=== PATIENT | male | born 1980 | race Caucasian/White ===

== ENCOUNTER → 2018-01-02 | Outpatient (REF) | payer BC | LOC: M LAB REF 19:14 | DX: J02.9 Acute pharyngitis, unspecified (principal) | CPT/HCPCS: 87070 ==

== ENCOUNTER → 2019-08-16 | Outpatient (REF) | payer OTHER ==
[2019-08-16 12:15] LABS: ALBUMIN 4.5 GM/DL (3.2-5.2); ALT/SGPT 69 U/L (12-78); AMYLASE 53 U/L (25-115); BILIRUBIN,TOTAL 0.7 MG/DL (0.2-1.0); BLOOD UREA NITROGEN 15 MG/DL (7-18); CALCIUM LEVEL 9.1 MG/DL (8.5-10.1); CARBON DIOXIDE LEVEL 29 MEQ/L (21-32); CHLORIDE LEVEL 106 MEQ/L (98-107); CHOLESTEROL LEVEL 184 MG/DL (<200); CHOLESTEROL RISK RATIO 6.571 (<5); CREATININE FOR GFR 1.03 MG/DL (0.70-1.30); FREE T4 0.84 NG/DL (0.76-1.46); GLOMERULAR FILTRATION RATE > 60.0 (>60); GLUCOSE, FASTING 96 MG/DL (70-100); HDL CHOLESTEROL 28 MG/DL (>40); LDL CHOLESTEROL 99 MG/DL (<100); LIPASE 147 U/L (73-393); NON-HDL-C 156 MG/DL; SODIUM LEVEL 141 MEQ/L (136-145); TRIGLYCERIDES LEVEL 287 MG/DL (<150)
[2019-08-16 12:17] LABS: BASO % 0.6 % (0.0-1.0); EOS # 0.3 10^3/uL (0.0-0.5); EOS % 4.1 % (0.0-3.0); HEMATOCRIT 47.2 % (42.0-52.0); HEMOGLOBIN 16.9 g/dl (13.5-17.5); LYMPH # 1.6 10^3/uL (1.5-5.0); LYMPH % 24.6 % (24.0-44.0); MEAN CORPUSCULAR HEMOGLOBIN 31.6 pg (27.0-33.0); MEAN CORPUSCULAR HGB CONC 35.8 g/dl (32.0-36.5); MEAN CORPUSCULAR VOLUME 88.4 fl (80.0-96.0); MONO # 0.6 10^3/uL (0.0-0.8); MONO % 8.6 % (0.0-5.0); NEUTROPHILS # 4.1 10^3/uL (1.5-8.5); NEUTROPHILS % 61.9 % (36.0-66.0); PLATELET COUNT, AUTOMATED 185 10^3/uL (150-450); RED BLOOD COUNT 5.34 10^6/uL (4.30-6.10); WHITE BLOOD COUNT 6.6 10^3/uL (4.0-10.0)
[2019-08-16 12:35] LABS: HEMOGLOBIN A1c 5.4 %
[2019-08-16 16:07] LABS: TOTAL 25(OH) VITAMIN D 24.7 NG/ML (30.0-100.0)
[2019-08-16 16:08] LABS: H PYLORI QUALITATIVE IgG NEGATIVE (NEGATIVE)
== END ==
LOC: M LAB REF 10:54
PROVIDERS: ATTEND Physician Assistant
DX: Z68.31 Body mass index [BMI] 31.0-31.9, adult (principal); E66.09 Other obesity due to excess calories; Z13.1 Encounter for screening for diabetes mellitus; Z13.220 Encounter for screening for lipoid disorders; R22.32 Localized swelling, mass and lump, left upper limb; R10.13 Epigastric pain; R10.817 Generalized abdominal tenderness; L71.9 Rosacea, unspecified

== ENCOUNTER → 2019-09-10 | Outpatient (CLI) | payer MEDICAID, OTHER ==
--- NOTE | 2019-09-10 08:23 | REP ---
COMPLETE ABDOMINAL SONOGRAPHY: HISTORY: Epigastric pain. Generalized abdominal tenderness. FINDINGS: Scanning through the right upper quadrant of the abdomen demonstrates normal sized thin-walled gallbladder without evidence of stone. There is evidence of a 0.4 cm polyp along the non-dependent wall of the gallbladder. No other evidence of wall thickening or pericholecystic fluid. Common bile duct is normal measuring 0.5 cm in greatest diameter. Normal size homogeneous liver is seen. No focal liver lesion. The spleen is at the upper range of normal in size, 13.1 cm in greatest diameter but homogeneous. A normal caliber aorta is seen, 2.3 cm in greatest AP dimension. There is no evidence of ascites. Renal cortical echogenicity pattern is normal and contours are smooth bilaterally. There is no evidence of hydronephrosis, cyst, or mass in either kidney. The right kidney measures 11.7 x 5.3 x 4.8 cm. Left renal dimensions are 11.9 x 5.0 x 4.6 cm. IMPRESSION: 4 mm polyp in the gallbladder wall. Otherwise normal acute abdominal sonography. Electronically Signed by Cosme Dickerson MD 09/10/2019 02:20 P
== END ==
LOC: M RAD 07:04
PROVIDERS: ATTEND Physician Assistant
DX: R10.13 Epigastric pain (principal)

== ENCOUNTER → 2019-12-04 | Outpatient (CLI) | payer OTHER | LOC: M LABSMTC 12:16 | PROVIDERS: ATTEND Anesthesiology | DX: Z01.818 Encounter for other preprocedural examination (principal); Z11.59 Encounter for screening for other viral diseases ==

== ENCOUNTER 2019-12-06 10:42 | Day surgery (SDC) | payer OTHER ==
[~2019-12-06] VITALS: Ht 185.4 cm; Wt 100.2 kg
[~2019-12-06 10:42] MED LIST: NS 1,000 ML IV ONE
[2019-12-06] MEDS ORDERED: LIDOCAINE 2% 100MG/5ML SDV (FOR ANES.) As Ordered ONE (12:05)
[2019-12-06] MEDS ORDERED: fentaNYL 100 MCG/2 ML INJECTION (J3010) As Ordered ONE (12:05)
[2019-12-06] MEDS ORDERED: propofoL 200 MG/20 ML VIAL As Ordered ONE ×2 (12:05→12:14)
--- NOTE | 2019-12-06 12:11 | ROOR ---
Patient Name: Sammy Peck Procedure Date: 12/06/2019 11:57 AM Date of : 1980 Age: 39 Room: [facility] Gender: Male Note Status: Finalized Procedure: Upper GI endoscopy Indications: Generalized abdominal pain, Eructation Providers: Lio CULLEN MD Referring MD: Yariel Harry PA Requesting Provider: Medicines: Monitored Anesthesia Care Complications: No immediate complications. Procedure: Pre-Anesthesia Assessment: - The heart rate, respiratory rate, oxygen saturations, blood pressure, adequacy of pulmonary ventilation, and response to care were monitored throughout the procedure. The Endoscope was introduced through the mouth, and advanced to the second part of duodenum. The upper GI endoscopy was accomplished without difficulty. The patient tolerated the procedure well. Findings: The esophagus was normal. The stomach was normal. The examined duodenum was normal. Biopsies for histology were taken with a cold forceps in the second portion of the duodenum and in the third portion of the duodenum for evaluation of celiac disease. Biopsies were taken with a cold forceps in the gastric antrum for Helicobacter pylori testing. Impression: - Normal esophagus. - Normal stomach. - Normal examined duodenum. - Biopsies were taken with a cold forceps for evaluation of celiac disease. - Biopsies were taken with a cold forceps for Helicobacter pylori testing. Recommendation: - Observe patient's clinical course. - Follow an antireflux regimen. - Telephone endoscopist for pathology results in 2 weeks. - Return to referring physician as previously scheduled. Lio Cullen MD Lio CULLEN MD 12/06/2019 12:11:38 PM Electronically signed by Lio CULLEN MD Number of Addenda: 0 Note Initiated On: 12/06/2019 11:57 AM Estimated Blood Loss: Estimated blood loss: none.
[2019-12-06] MEDS ORDERED: ePHEDrine SULFATE 25 MG/5 ML(5MG/ML) SYRINGE As Ordered ONE (12:15)
--- NOTE | 2019-12-06 12:29 | ROOR ---
Patient Name: Sammy Peck Procedure Date: 12/06/2019 11:57 AM Date of : 1980 Age: 39 Room: [facility] Gender: Male Note Status: Finalized Procedure: Colonoscopy Indications: Change in bowel habits, Constipation, Diarrhea Providers: Lio CULLEN MD Referring MD: Yariel Harry PA Requesting Provider: Medicines: Monitored Anesthesia Care Complications: No immediate complications. Procedure: Pre-Anesthesia Assessment: - The heart rate, respiratory rate, oxygen saturations, blood pressure, adequacy of pulmonary ventilation, and response to care were monitored throughout the procedure. The Colonoscope was introduced through the anus and advanced to 10 cm into the ileum. The colonoscopy was performed without difficulty. The patient tolerated the procedure well. The quality of the bowel preparation was good. Findings: The perianal and digital rectal examinations were normal. Internal hemorrhoids were found during retroflexion. The hemorrhoids were medium-sized. Two sessile polyps were found in the sigmoid colon and cecum. The polyps were 5 to 8 mm in size. These polyps were removed with a cold snare. Resection and retrieval were complete. The exam was otherwise without abnormality on direct and retroflexion views. The terminal ileum appeared normal. Biopsies for histology were taken with a cold forceps from the entire colon for evaluation of microscopic colitis. Impression: - The perianal exam and examined portion of the ileum was normal. - Internal hemorrhoids. - Two 5 to 8 mm polyps in the sigmoid colon and in the cecum, removed with a cold snare. Resected and retrieved. - The examination was otherwise normal on direct and retroflexion views. - Biopsies for histology were taken with a cold forceps from the entire colon for evaluation of microscopic colitis. Recommendation: - Telephone endoscopist for pathology results in 2 weeks. - If the pathology report reveals adenomatous tissue, then repeat the colonoscopy for surveillance in 5 years. - Lactose free diet. - Continue present medications. - Return to referring physician as previously scheduled. Lio Cullen MD Lio CULLEN MD 12/06/2019 12:29:17 PM Electronically signed by Lio CULLEN MD Number of Addenda: 0 Note Initiated On: 12/06/2019 11:57 AM Estimated Blood Loss: Estimated blood loss: none.
[2019-12-06 12:45] VITALS: BP 134/78
== END 2019-12-06 13:30 | disposition home or self-care (01) ==
LOC: M OPP 10:42
PROVIDERS: ATTEND Internal Medicine Gastroenterology
DX: K63.5 Polyp of colon (principal); K64.8 Other hemorrhoids; K59.00 Constipation, unspecified; R19.7 Diarrhea, unspecified; R10.84 Generalized abdominal pain; R14.2 Eructation; K29.70 Gastritis, unspecified, without bleeding
CPT/HCPCS: 43239; 45380; 45385; 88305; J3010

== ENCOUNTER 2020-08-23 15:57 | Emergency (ER) | payer OTHER ==
[~2020-08-23] VITALS: Ht 182.9 cm; Wt 105.9 kg
--- OUTSIDE RECORDS SUMMARY | 2020-08-23 16:05 | CCD ---
Author Organization Unknown Address [address] [place] [id number] Phone [phone] Care Team Providers Care Gear Shaper Name Role Phone Yariel Perez Unavailable Unavailable Allergies Code Code System Name Reaction Severity Status Onset NKDA Medications No Medications Reported Problems Name Status Onset Date Source Simple Obesity Active 08/05/2019 History Body Mass Index 25-29 - Overweight Active 08/05/2019 History Rosacea Active 08/05/2019 History Epigastric Pain Unknown 08/05/2019 History Generalized Abdominal Tenderness Unknown 08/05/2019 History Diabetes Mellitus Screening Unknown 08/05/2019 Hist ory Finding of Upper Limb Unknown 08/05/2019 History Evaluation Procedure Unknown 08/05/2019 History Clinical Finding Unknown 08/05/2019 History Pure Hyperglyceridemia Active 08/23/[address] Concept Unknown 08/23/2019 History Patient Asked to Attend Unknown 08/23/2019 History Cholesterolosis of Gallbladder Active 10/07/2019 H istory Adjustment Disorder with Anxious Mood Active 01/15/2020 History Palpitations Active 01/15/2020 History Chest Pain Unknown 01/15/2020 History Procedures Notes: tissue removal from left chest ar ea age 17 Results Lab Results Date Name Specimen Result Interpretation Description Value Range Status Address Urinalysis, Dipstick, Auto Bilirubin neg [facility] Medical: [address], [place] Blood neg [facility] Medic al: [address], [place] Glucose neg [facility] Med ical: [address] [place] Ketone neg [facility] Medi lance: [address] [place] Leukocytes neg [facility] Medical: [address] [place] Nitrite neg [facility] Med ical: [address] [place] Ph 6.0 [facility] Medica l: [address] [place] Protein neg [facility] Med ical: [address] [place] Specific [place] 1.010 [facility]: [address] [place] Urobilinogen 3.5 [facility] Medical: [address] [facility] [address] [place] Past Encounters 08/13/2020 Dysuria; Low Back Pain; Mental Health Screening Assessment Lilli Alarcon PA-C: [address] [facility], [facility] [address], [place] [address], Ph. Social History Tobacco Smoking Status Never Smoker Vaccine List None recorded. Plan of Care Reminders Provider Appointments None recorded. Lab None recorded. Referral None recorded. Procedures None recorded. Surgeries None recorded. Imaging None recorded. Vitals 08/13/2020 02:30PM ESTABLISHED [id number] Height Weight BMI Blood Pressure 72 in 233 lbs 12.8 oz 31.7 kg/m2 121/79 mm[H g] 01/15/2020 Height Weight Blood Pressure 72 in 219 lbs 6.08 oz 106/74 mm[Hg] 10/07/2019 Height Weight Blood Pressure 72 in 216 lbs 115/75 mm[Hg] 08/23/2019 Height Weight Blood Pressure 72 in 221 lbs 127/89 mm[Hg] 08/05/2019 Height Weight Blood Pressure 72 in 229 lbs 6.08 oz 138/89 mm[Hg]
--- OUTSIDE RECORDS SUMMARY | 2020-08-23 16:05 | CCD ---
Author Author [facility] Organization [facility] Address Unknown Phone Unavailable Care Team Providers Care Campaign Fundraiser Name Role Phone Nic, A Gisela OUTDOOR EMERGENCY CARE TECHNICIAN Unavailable Unavailable Nic, A Gisela OUTDOOR EMERGENCY CARE TECHNICIAN Unavailable Unavailable Nic, A Gisela OUTDOOR EMERGENCY CARE TECHNICIAN Unavailable Unavailable Nic, A Gisela OUTDOOR EMERGENCY CARE TECHNICIAN Unavailable Unavailable Nic, A Gisela OUTDOOR EMERGENCY CARE TECHNICIAN Unavailable Unavailable Nic, A Gisela OUTDOOR EMERGENCY CARE TECHNICIAN Unavailable Unavailable Nic, A Gisela OUTDOOR EMERGENCY CARE TECHNICIAN Unavailable Unavailable Nic, A Gisela OUTDOOR EMERGENCY CARE TECHNICIAN Unavailable Unavailable Nic, A Gisela OUTDOOR EMERGENCY CARE TECHNICIAN Unavailable Unavailable Nic, A Gisela OUTDOOR EMERGENCY CARE TECHNICIAN Unavailable Unavailable Nic, A Gisela OUTDOOR EMERGENCY CARE TECHNICIAN Unavailable Unavailable Nic, A Gisela OUTDOOR EMERGENCY CARE TECHNICIAN Unavailable Unavailable Nic, A Gisela OUTDOOR EMERGENCY CARE TECHNICIAN Unavailable Unavailable Nic, A Gisela OUTDOOR EMERGENCY CARE TECHNICIAN Unavailable Unavailable Nic, A Gisela OUTDOOR EMERGENCY CARE TECHNICIAN Unavailable Unavailable Nic, A Gisela OUTDOOR EMERGENCY CARE TECHNICIAN Unavailable Unavailable Nic, A Gisela OUTDOOR EMERGENCY CARE TECHNICIAN Unavailable Unavailable Nic, A Gisela OUTDOOR EMERGENCY CARE TECHNICIAN Unavailable Unavailable Nic, A Gisela OUTDOOR EMERGENCY CARE TECHNICIAN Unavailable Unavailable Nic, A Gisela OUTDOOR EMERGENCY CARE TECHNICIAN Unavailable Unavailable Nic, A Gisela OUTDOOR EMERGENCY CARE TECHNICIAN Unavailable Unavailable Nic A Gisela OUTDOOR EMERGENCY CARE TECHNICIAN Unavailable Unavailable Nic, A Gisela OUTDOOR EMERGENCY CARE TECHNICIAN Unavailable Unavailable Nic, A Gisela OUTDOOR EMERGENCY CARE TECHNICIAN Unavailable Unavailable Nic, A Gisela OUTDOOR EMERGENCY CARE TECHNICIAN Unavailable Unavailable Nic, A Gisela OUTDOOR EMERGENCY CARE TECHNICIAN Unavailable Unavailable Nic, A Gisela OUTDOOR EMERGENCY CARE TECHNICIAN Unavailable Unavailable Scordo, M Lilli PA Unavailable Unavailable Scordo, M Lilli PA Unavailable Unavailable Scordo, M Lilli PA Unavailable Unavailable Scordo, M Lilli PA Unavailable Unavailable Scordo, M Lilli PA Unavailable Unavailable Scordo, M Lilli PA Unavailable Unavailable Scordo, M Lilli PA Unavailable Unavailable Scordo, M Lilli PA Unavailable Unavailable Scordo, M Lilli PA Unavailable Unavailable Scordo, M Lilli PA Unavailable Unavailable Scordo, M Lilli PA Unavailable Unavailable Scordo, M Lilli PA Unavailable Unavailable Scordo, M Lilli PA Unavailable Unavailable Scordo, M Lilli PA Unavailable Unavailable Scordo, M Lilli PA Unavailable Unavailable Scordo, M Lilli PA Unavailable Unavailable Scordo, M Lilli PA Unavailable Unavailable Scordo, M Lilli PA Unavailable Unavailable Scordo, M Lilli PA Unavailable Unavailable Scordo, M Lilli PA Unavailable Unavailable Scordo, M Lilli PA Unavailable Unavailable Scordo, M Lilli PA Unavailable Unavailable Scordo, M Lilli PA Unavailable Unavailable Scordo, M Lilli PA Unavailable Unavailable Scordo, M Lilli PA Unavailable Unavailable Scordo, M Lilli PA Unavailable Unavailable Scordo, M Lilli PA Unavailable Unavailable Scordo, M Lilli PA Unavailable Unavailable Scordo, M Lilli PA Unavailable Unavailable Scordo, M Lilli PA Unavailable Unavailable Scordo, M Lilli PA Unavailable Unavailable Scordo, M Lilli PA Unavailable Unavailable Scordo, M Lilli PA Unavailable Unavailable Scordo, M Lilli PA Unavailable Unavailable Scordo, M Lilli PA Unavailable Unavailable Scordo, M Lilli PA Unavailable Unavailable Scordo, M Lilli PA Unavailable Unavailable Scordo, M Lilli PA Unavailable Unavailable Scordo, M Lilli PA Unavailable Unavailable Scordo, M Lilli PA Unavailable Unavailable Nic, Gisela OUTDOOR EMERGENCY CARE TECHNICIAN OUTDOOR EMERGENCY CARE TECHNICIAN Unavailable Unavailable HERNANDEZ, GABRIEL YARIEL RPA-C Unavailable Unavailable HERNANDEZ, GABRIEL YARIEL RPA-C Unavailable Unavailable HERNANDEZ, GABRIEL YARIEL RPA-C Unavailable Unavailable HERNANDEZ, GABRIEL YARIEL RPA-C Unavailable Unavailable HERNANDEZ, GABRIEL YARIEL RPA-C Unavailable Unavailable HERNANDEZ, GABRIEL YARIEL RPA-C Unavailable Unavailable HERNANDEZ, GABRIEL YARIEL RPA-C Unavailable Unavailable HERNANDEZ, GABRIEL YARIEL RPA-C Unavailable Unavailable HERNANDEZ, GABRIEL YARIEL RPA-C Unavailable Unavailable HERNANDEZ, GABRIEL YARIEL RPA-C Unavailable Unavailable HERNANDEZ, GABRIEL YARIEL RPA-C Unavailable Unavailable HERNANDEZ, GABRIEL YARIEL RPA-C Unavailable Unavailable HERNANDEZ, GABRIEL YARIEL RPA-C Unavailable Unavailable HRENANDEZ, GABRIEL YARIEL RPA-C Unavailable Unavailable HERNANDEZ, GABRIEL YARIEL RPA-C Unavailable Unavailable HERNANDEZ, GABRIEL YARIEL RPA-C Unavailable Unavailable HERNANDEZ, GABRIEL YARIEL RPA-C Unavailable Unavailable HERNANDEZ, GABRIEL YARIEL RPA-C Unavailable Unavailable HERNANDEZ, GABRIEL YARIEL RPA-C Unavailable Unavailable HERNANDEZ, GABRIEL YARIEL RPA-C Unavailable Unavailable HERNANDEZ, GABRIEL YARIEL RPA-C Unavailable Unavailable HERNANDEZ, GABRIEL YARIEL RPA-C Unavailable Unavailable HERNANDEZ, GABRIEL YARIEL RPA-C Unavailable Unavailable HERNANDEZ, GABRIEL YARIEL RPA-C Unavailable Unavailable HERNANDEZ, GABRIEL YARIEL RPA-C Unavailable Unavailable HERNANDEZ, GABRIEL YARIEL RPA-C Unavailable Unavailable HERNANDEZ, GABRIEL YARIEL RPA-C Unavailable Unavailable HERNANDEZ, GABRIEL YARIEL RPA-C Unavailable Unavailable HERNANDEZ, GABRIEL YARIEL RPA-C Unavailable Unavailable HERNANDEZ, GABRIEL YARIEL RPA-C Unavailable Unavailable HERNANDEZ, GABRIEL YARIEL RPA-C Unavailable Unavailable HERNANDEZ, GABRIEL YARIEL RPA-C Unavailable Unavailable HERNANDEZ, GABRIEL YARIEL RPA-C Unavailable Unavailable HERNANDEZ, GABRIEL YARIEL RPA-C Unavailable Unavailable HERNANDEZ, GABRIEL YARIEL RPA-C Unavailable Unavailable HERNANDEZ, GABRIEL YARIEL RPA-C Unavailable Unavailable HERNANDEZ, GABRIEL YARIEL RPA-C Unavailable Unavailable HERNANDEZ, GABRIEL YARIEL RPA-C Unavailable Unavailable HERNANDEZ, GABRIEL YARIEL RPA-C Unavailable Unavailable [facility], [facility] HERNANDEZ PA YARIEL Unavailable Unavailable Re-disclosure Warning The records that you are about to access may contain information from federally-assisted alcohol or drug abuse programs. If such information is present, then the following federally mandated warning applies: This information has been disclosed to you from records protected by federal confidentiality rules (42 CFR part 2). The federal rules prohibit you from making any further disclosure of this information unless further disclosure is expressly permitted by the written consent of the person to whom it pertains or as otherwise permitted by 42 CFR part 2. A general authorization for the release of medical or other information is NOT sufficient for this purpose. The Federal rules restrict any use of the information to criminally investigate or prosecute any alcohol or drug abuse patient.The records that you are about to access may contain highly sensitive health information, the redisclosure of which is protected by Article 27-F of the [facility] Public Health law. If you continue you may have access to information: Regarding HIV / AIDS; Provided by facilities licensed or operated by the [facility] Office of Mental Health; or Provided by the [facility] Office for People With Developmental Disabilities. If such information is present, then the following [facility] mandated warning applies: This information has been disclosed to you from confidential records which are protected by state law. State law prohibits you from making any further disclosure of this information without the specific written consent of the person to whom it pertains, or as otherwise permitted by law. Any unauthorized further disclosure in violation of state law may result in a fine or alf sentence or both. A general authorization for the release of medical or other information is NOT sufficient authorization for further disc losure. Family History Family Member Name Family Member Gender Family Member Status Date o f Status Description Data Source(s) Unknown Unknown Problem [facility] ([facility] father Encounters Encounter Providers Location Date Indications Data Source(s ) Lilli Alarcon PA-C: [address] [facility] [address], [place] [address], Ph. Attender: Lilli PENA [facility] 08/13/2020 12:00:00 AM EST MARK ([facility]) Outpatient Attender: YARIEL MILLS 07/06/2020 12:02:[address] [facility] Outpatient Attender: MARILYN SALINAS 02/12/2020 08:51:[address] [facility] Outpatient Attender: MARILYN GARCIA NC FP 01/28/2020 12:03:02 PM EDT [facility] Outpatient Attender: MARILYN GARCIA NC FP 01/22/2020 09:04:02 AM EDT [facility] Outpatient Attender: MARILYN GARCIA NC FP 01/17/2020 03:07:[address] [facility] Outpatient Attender: YARIEL MARY RPA-C FP 01/16/2020 01:25:00 PM EDT [facility] Outpatient Attender: Gisela OLSON FP 01/16/2020 10:3 0:07 AM EDT [facility] Outpatient Attender: WESLEY OLSON FP 01/15/2020 04:55:59 P M EDT [facility] Outpatient Attender: WESLEY OLSON FP 01/15/2020 04:49:01 P M EDT [facility] Outpatient Attender: WESLEY OLSON FP 01/15/2020 03:59:00 P M EDT [facility] Outpatient Attender: WESLEY OLSON FP 10/14/2019 04:49:01 P M EDT [facility] Outpatient Attender: Gisela OLSON FP 10/14/2019 09:1 8:01 AM EDT [facility] Outpatient Attender: WESLEY OLSON FP 10/07/2019 09:00:04 A [facility] Outpatient Attender: WESLEY OLSON FP 10/07/2019 08:35:01 A M [facility] Outpatient Attender: WESLEY OLSON FP 10/03/2019 12:46:02 P M [facility] Out[facility] 09/18/2019 02:13:00 PM [facility] Outpatient Attender: WESLEY OLSON FP 09/12/2019 10:14:04 A M [facility] Outpatient Attender: WESLEY OLSON FP 09/04/2019 01:55:01 P M [facility] Outpatient Attender: Gisela OLSON FP 08/26/2019 08:0 9:01 AM [facility] Outpatient Attender: WESLEY OLSON FP 08/23/2019 09:02:01 A [facility] Outpatient Attender: WESLEY Lucero OUTDOOR EMERGENCY CARE TECHNICIAN FP 08/23/2019 08:08:00 A [facility] Outpatient Attender: WESLEY Lucero OUTDOOR EMERGENCY CARE TECHNICIAN FP 08/22/2019 01:36:02 P [facility] Outpatient Attender: Gisela Lucero OUTDOOR EMERGENCY CARE TECHNICIAN FP 08/22/2019 01:3 6:01 PM [facility] Outpatient Attender: Gisela Lucero OUTDOOR EMERGENCY CARE TECHNICIAN FP 08/22/2019 01:3 0:05 PM [facility] Outpatient Attender: WESLEY Lucero OUTDOOR EMERGENCY CARE TECHNICIAN FP 08/16/2019 10:17:00 A [facility] Outpatient Attender: WESLEY Lucero OUTDOOR EMERGENCY CARE TECHNICIAN FP 08/16/2019 08:41:01 A M [facility] Outpatient Attender: Gisela Lucero OUTDOOR EMERGENCY CARE TECHNICIAN 08/05/2019 02:3 0:04 PM [facility] Outpatient Attender: WESLEY Lucero OUTDOOR EMERGENCY CARE TECHNICIAN 08/05/2019 02:28:03 P [facility] Outpatient Attender: Gisela Lucero OUTDOOR EMERGENCY CARE TECHNICIAN 08/05/2019 02:2 8:03 PM [facility] Outpatient Attender: WESLEY Lucero OUTDOOR EMERGENCY CARE TECHNICIAN 08/05/2019 01:11:00 P [facility] Outpatient Attender: WESLEY Lucero OUTDOOR EMERGENCY CARE TECHNICIAN 08/05/2019 01:10:01 P [facility] Outpatient Attender: WESLEY Lucero OUTDOOR EMERGENCY CARE TECHNICIAN 08/05/2019 01:01:00 P [facility] Outpatient Attender: WESLEY Lucero OUTDOOR EMERGENCY CARE TECHNICIAN FP 08/05/2019 12:59:00 P [facility] Outpatient Attender: WESLEY Lucero OUTDOOR EMERGENCY CARE TECHNICIAN FP 08/05/2019 12:48:00 P [facility] Outpatient Attender: WESLEY Lucero OUTDOOR EMERGENCY CARE TECHNICIAN FP 08/05/2019 12:45:00 P [facility] Outpatient Attender: WESLEY Lucero OUTDOOR EMERGENCY CARE TECHNICIAN FP 08/01/2019 09:59:00 A M [facility] Outpatient Attender: Gisela Lucero OUTDOOR EMERGENCY CARE TECHNICIAN FP 08/01/2019 09:5 8:01 AM [facility] Outpatient Attender: WESLEY Lucero OUTDOOR EMERGENCY CARE TECHNICIAN FP 08/01/2019 09:58:01 A M [facility] Medications Medication Brand Name Start Date Product Form Dose Route Admi nistrative Instructions Pharmacy Instructions Status Indications Reaction Description Data Source(s) magnesium citrate 58.2 MG/ML Oral Solution Magnesium Citrate 10/03/2019 12:00:00 AM EST active [facility] ([facility], ) POLYETHYLENE GLYCOL 3350 105 MG/ML / Pot assium Chloride 0.06772 MEQ/ML / Sodium Bicarbonate 0.017 MEQ/ML / Sodium Chloride 0.0479 MEQ/ML Oral Solution [TriLyte] Trilyte 10/03/2019 12:00:00 AM EST active [facility] ([facility]) No Active Medications 10/03/2019 12:00:00 AM EST completed [facility] ([facility]) POLYETHYLENE GLYCOL 3350 142 MG/ML Oral Solution [Miralax] M iralax 10/03/2019 12:00:00 AM EST active M [facility] ([facility]) Insurance Providers Payer name Policy type / Coverage type Policy ID Covered republican ID Covered republican's relationship to sharp Policy Sharp Plan Information ANKIT [id number] SP [id number] Managed Care [place] P [id number] S [id number] Medicaid S [id number] S [id number] MEDICAID [id number] SP [id number] Managed Care [place] P [id number] S [id number] Medicaid S UNAVAILABLE S UNAVAILA BLE [facility] P [id number] S [id number] [facility] P [id number] S [id number] MEDICAID M [id number] S [id number] MEDICAID [id number] SP [id number] [facility] P [id number] S [id number] Self Pay P UNAVAILABLE S UNAVAILA BLE [place] PPO 302/[id number] SP [id number] BCBS/[employer] Commercial [id number] Self VY [id number] BLUE CROSS BLUE SHIELD -O/P [id number] Problems, Conditions, and Diagnoses Code Display Name Description Problem Type Effective Dates Data Source(s) 309.24 Adjustment disorder with anxious mood Ad justment disorder with anxious mood 01/15/2020 04:55:[address] [facility] 786.59 Tight chest Tight chest 01/15/2020 04:55:[address] [facility] 785.1 Intermittent palpitations Intermittent palpitations 01/15/2020 04:55:[address] [facility] [id number] Chest pain Chest Pain Problem 01/15/2020 12:0 0:00 AM EDT - 08/14/2020 12:00:00 AM EST [place] ([facility]) [id number] Palpitations Palpitations Problem 01/15/2020 12:00:00 A M EDT [place] ([facility]) [id number] Adjustment disorder with anxious mood Ad justment Disorder with Anxious Mood Problem 01/15/2020 12:00:00 AM EDT [facility]) K82.4 Cholesterolosis of gallbladder Polyp of gallbladder 10/07/2019 08:58:35 AM [facility] V85.25 Body Mass Index 29.0-29.9, adult Body Mass Index 29.0- 29.9, adult 10/07/2019 08:58:35 AM [facility] [id number] Cholesterolosis of gallbladder Cholesterolosis of Gall bladder Problem 10/07/2019 12:00:00 AM [facility] ([facility]) 272.1 Hypertriglyceridemia Hypertriglyceridemia 08/23 09:01:56 AM [facility] V65.8 Person consulting for explanation of exa mination or test findings Person consulting for explanation of examination or test findings 08/23/2019 09:01:56 AM [facility] Z00.00 Encounter for general adult medical examination without abnormal findings Encounter for general adult medical examination without abno rmal findings 08/23/2019 09:01:56 AM [facility] [id number] Patient asked to attend Patient Asked to Attend [facility] 08/23/2019 12:00:00 AM [facility] - 08/14/2020 [facility]00[id number] SN[facility] Concept SNOMED CT Concept Problem 08/23 12:00:00 AM EST - 08/14/2020 12:00:00 AM EST MARK ([facility]) [id number] Pure hyperglyceridemia Pure Hyperglyceridemia Problem 08/23/2019 12:00:00 AM [place] ([facility]) V70.0 Health Screening Health Screening 08/05/2019 02 :27:06 PM [facility] 278.00 Obesity Obesity 08/05/2019 02:27:[address] [facility] V77.1 Screening for diabetes mellitus Screening for diabetes mellitus 08/05/2019 02:27:06 PM [facility] V77.91 Screening for lipoid disorders Screening for lipoid di sorders 08/05/2019 02:27:06 PM [facility] R22.32 Localized swelling, mass and lump, left upper limb Nodule of skin of left forearm 08/05/2019 02:27:06 PM [facility] 789.06 Epigastric pain Epigastric pain 08/05/2019 02:2 7:06 PM [facility] [id number] Generalized abdominal tenderness Generalized abdominal tenderness 08/05/2019 02:27:06 PM [facility] L71.9 Rosacea, unspecified Rosacea, unspecified 08/05 02:27:06 PM [facility] 337187006 Clinical finding Clinical Finding Problem 019 12:00:00 AM [facility] - 08/14/2020 12:00:00 AM [place] ([facility]) [id number] Evaluation procedure Evaluation Procedure Problem 08/05/2019 12:00:00 AM [facility] - 08/14/2020 12:00:00 AM [place] ([facility]) [id number] Finding of upper limb Finding of Upper Limb Problem 08/05/2019 12:00:00 AM [facility] - 08/14/2020 12:00:00 AM [place] ([facility]) 217803065 Diabetes mellitus screening Diabetes Mellitus Screenin g Problem 08/05/2019 12:00:00 AM [facility] - 08/14/2020 12:00:00 AM [place] ([facility]) [id number] Generalized abdominal tenderness Generalized Abd ominal Tenderness Problem 08/05/2019 12:00:00 AM [facility] - 08/14/2020 12:00:00 AM [place] ([facility]) 01547514 Epigastric pain Epigastric Pain Problem 9 12:00:00 AM EST - 08/14/2020 12:00:00 AM [place] [place] ([facility]) 892854107 Rosacea Rosacea Problem 08/05/2019 12:00:00 AM [place] ([facility]) 735252216 Body mass index 25-29 - overweight Body Mass Ind ex 25-29 - Overweight Problem 08/05/2019 12:00:00 AM [facility] [place] ([facility]) 900265823 Simple obesity Simple Obesity Problem 08/05/2019 12:00: 00 AM [place] [place] ([facility]) Results ID Date Data Source [id number] 01/15/2020 04:04:[address] [facility] Measurements & CalculationsHeight: 72 inches (6 ft. 0 in.) 182.88 cm Weight: 219 pounds 6 oz. 99.72 kg Body Mass Index (BMI): 29.86BMI Interpretation: OverweightBody Surface Area (BSA): 2.22Vital SignsTemperature: 98.4F 36.89C tympanic Pulse Rate: 84 beats/minuteRespiratory Rate: 19 respirations/minuteBlood Pressure: 106/74 left arm sitting automaticO2 Saturation: 97% Vital Signs performed by: Eleanor Sharpe LPN, January 15, 2020 4:06 PMInitial Intake Information From: patientRoom #: 1Infectious Disease / Travel ScreeningRecent travel for you or any close contacts? NoHave you had any close contact with anyone diagnosed with or under investigation for COVID-19 (coronavirus)? NoTravel in last 14 days? NoFever? NoRespiratory symptoms: cough, cold, congestion, shortness of breath, difficulty breathing? YesLoss of smell? NoLoss of taste? NoJoint pain? NoMuscle aches? NoGeneral fatigue, feeling tired, or weak? NoWeakness or numbness of your arms or legs, including being unable to walk/move? YesRash or hives? NoSmoking, Tobacco, Vaping or Smoke Exposure StatusSmoke Status: never smokerDo you vape? NoHealthcare HistorySince your last office visit...Have you been admitted to the hospital? NoHave you been to an emergency room (ER) or urgent care clinic? NoHave you seen another healthcare provider? NoHave you seen a dentist? Yes - brandi Taylor performed by: Eleanor Sharpe LPN, January 15, 2020 4:08 PMRate Your HealthIn general, would you say your health is? GoodPain AssessmentAre you currently having any pain which... You would like your provider to address? No Affects your activity level? NoDepression Screening - PHQ-2Over the last two weeks, have you... Had little interest or pleasure in doing things? Not at all Been feeling down, depressed, or hopeless? Not at all PHQ-2 Score: 0Anxiety Screening - JASPAL- 2Over the last two weeks, have you been... Feeling nervous, anxious, or on edge? Not at all Unable to stop or control worrying? Not at all JASPAL-2 Score: 0Food InsecurityWithin the past year...Did you worry whether your food would run out before you got money to buy more? NoWas there a time when the food you bought didn't last and you didn't have money to get more? NoPatient History Medical History:sickness induced asthma Surgical History:tissue removal from left chest area age 17Family History:Mother: alive and well1/2 sister from cancer in her 40s (unknown type, diagnosed with an ultrasound)Social/Personal History: Chief Complaintfollow-up visit: fluttering of heartHistory of Present Illness (HPI)39 yo patient states he has been having pain in center of chest along with fluttering heart. Pt states pressure when he takes a very deep breath. Does not note any exertion limitations, chest pain, dizziness. States does not affect his daily routine but is noticable. Pt states he has had a dry cough as well; feels it is different than his seasonal allergy cough. States this has been going on for 1 week. Had had an endoscopy/c-scope in December 2019, believes results were normal but he hasn't called for pathology results. Admits to intermittent fasting and strict dietary changes for the last two weeks, states he only eats between the hours of 830AM- 530PM. Pt does admit to significant stressors related to moving to [facility] for his 's preference. He feels he left a great job for himself, doesn't have great job options or chance for growth here, feels financial strains. Feels isolated socially in this location. At times feels blame towards his for pushing to move to this area from where they were previously in the [facility]. HPI performed by: Yariel ARGUELLO, January 15, 2020 4:37 PMTransitions of Care InboundProblem ReviewProblem List was reviewed and/or updated during this visit.Medication Reconciliation & ReviewMedication List was reviewed and/or updated during this visit, including review of any [id number] medications, herbal therapies, and/or supplements. Patient has no known medications.Allergy ReviewAllergy List was reviewed and/or updated during this visit. Patient has no known allergies.Review of Systems General: Denies chills, dizziness, fatigue, fever, headache, feeling ill. Cardiovascular: Complains of see HPI, chest pain, palpitations. Denies feeling faint, trouble breathing w/exertion, SOB upon lying down, peripheral edema. Respiratory: Denies cough, difficulty breathing, shortness of breath. Gastrointestinal: Denies nausea, vomiting, diarrhea, constipation, pain or discomfort. Ne urologic: Denies weakness, numbness/tingling, seizures, slurred speech, feeling faint. Psychiatric: Complains of see HPI, anxiety, feeling stressed. Physical ExamGeneral Appearance: well nourished, well hydrated, no acute distressEyes, External: conjunctivae and lids normal, EOMIRespiratory, Auscultation: clear to auscultation bilaterally; no rales, rhonchi, or wheezesRespiratory, Effort: no intercostal retractions or use of accessory musclesCardiovascular, Auscultation: S1, S2 audible; no murmur, rub, or gallop; RRRPeripheral Circulation: no clubbing, cyanosis, edema, or varicositiesAbdomen: soft, non-tender, no masses, bowel sounds normalGait & Station: normalSkin, Inspection: no rashes, lesions, or ulcerationsOrientation: oriented to time, place, and personMood & Affect: mildly anxious appearing, good eye contact, speech clearJudgment & Insight: intactCare Management Plan Transitions of CareInboundRate Your HealthIn general, would you say your health is? GoodAssessment & Plan Problems:Added: Intermittent palpitations (ICD-785.1) (XJI65-M35.2) Assessment: Instructions: EKG showed normal sinus rhythm. Will order Holter monitor to evaluate further.Tight chest (ICD-786.59) (JAR72-P75.89) Assessment: Instructions: Consider antihistamine to ensure allergies are being treated strictly. As above regarding EKG. Update labs.Adjustment disorder with anxious mood (ICD-309.24) (NHI97-U98.22) Assessment: Instructions: Consider above anxiety components as well.Assessed:Epigastric pain (ICD-789.06) (YYQ96-J67.13) Assessment: Instructions: Call your GI provider for pathology reports regarding Celiac and H pylori testing.Patient Instructions/Care Plan: Intermittent palpitations: EKG showed normal sinus rhythm. Will order Holter monitor to evaluate further.Tight chest: Consider antihistamine to ensure allergies are being treated strictly. As above regarding EKG. Update labs.Epigastric pain: Call your GI provider for pathology reports regarding Celiac and H pylori testing.Adjustment disorder with anxious mood: Consider above anxiety components as well. Plan developed in collaboration with patient and/or familyAllergies:No Known Allergies (updated 01/15/2020) Orders:COMP METABOLIC PANEL [CPT-58110] CBC W/DIFF [CPT-16517] TSH [CPT-11203] T-4 free [CPT-28962] Magnesium [S72343I,[id number]] 48HR Holter Monitor- external grocery cashier [CPT-22827] Mental Health Consult [CPT-10792] Adult - Ofc Vst, EST, Level III [CPT-75121] Follow-Up Return to clinic: as needed Clinical Visit Summary Declined Name Value Range Interpretation Code Description Data Casie rce(s) Supporting Document(s) ID Date Data Source [id number] 12/04/2019 12:00:00 PM EDT [facility] Name Value Range Interpretation Code Description Data Casie rce(s) Supporting Document(s) SARS CORONAVIRUS 2 RNA [facility] This lab was ordered by [facility] and reported by [facility]. ID Date Data Source [id number] 10/07/2019 08:33:53 AM [facility] Measurements & CalculationsHeight: 72 inches 182.88 cm Weight: 216 pounds 98.18 kg Body Mass Index (BMI): 29.40BMI Interpretation: OverweightBody Surface Area (BSA): 2.20Weight Management Education Done (Nutrition/Physical Activity)Vital SignsTemperature: 98.4F oral Pulse Rate: 55 beats/minuteRespiratory Rate: 19 respirations/minuteBlood Pressure: 115/75 left arm sitting automaticO2 Saturation: 97% room airVital Signs performed by: Aram Nogueira MA, October 07, 2019 8:42 AMVital Signs performed by: Yariel ARGUELLO, October 07, 2019 8:48 AMInitial Intake Information from: ptRoom #: 9Smoking, Tobacco, Vaping or Smoke Exposure StatusSmoke Status: never smokerDo you vape? NoPassive Smoke Exposure: NoHealthcare HistorySince your last office visit...Have you been admitted to the hospital? NoHave you been to an emergency room (ER) or urgent care clinic? NoHave you seen another healthcare provider? NoHave you seen a dentist? Yes - Brandi WardIntake performed by: Aram Nogueira MA, October 07, 2019 8:42 AMRate Your HealthIn general, would you say your health is? GoodPain AssessmentAre you currently having any pain which... You would like your provider to address? No Affects your activity level? NoDepression Screening - PHQ-2Over the last two weeks, have you... Had little interest or pleasure in doing things? Not at all Been feeling down, depressed, or hopeless? Not at all PHQ-2 Score: 0Anxiety Screening - JASPAL-2Over the last two weeks, have you been... Feeling nervous, anxious, or on edge? Not at all Unable to stop or control worrying? Not at all JASPAL-2 Score: 0Infectious Disease / Travel ScreeningRecent travel for you, your family, and/or any sexual partners? NoScreening, Brief Intervention, & Referral to Treatment (SBIRT)Pre-Screening Questions How many times have you have 5 or more drinks in a day? 0How many times have you used an illegal drug or used a prescription medication for a non-medical reason? 0Performed by: Aram Nogueira MA, October 07, 2019 8:43 AMPatient History Medical History:sickness induced asthma Surgical History:tissue removal from left chest area age 17Family History:Mother: alive and well1/2 sister from cancer in her 40s (unknown type, diagnosed with an ultrasound)Social/Personal History: Chief Complaintfollow up on ultra soundHistory of Present Illness (HPI)39 y/o male present today to go over abdominal ultrasound results. Pt reports he had initial GI consult last week, note not available in chart today. Reports colonscopy and EGD in the near future. Pt has still not taking PPI as previously prescribed. Pt feels symptoms remain fairly consistent, do worsen with unhealthy food choices. USN showed 0.4 cm polyp along the non-dependent wall of the gallbladder.HPI performed by: Yariel ARGUELLO, October 07, 2019 8:48 AMTransitions of Care InboundProblem ReviewProblem List was reviewed and/or updated during this visit.Medication Reconciliation & ReviewMedication List was reviewed and/or updated during this visit, including review of any buvv-ocm-iffopxk medications, herbal therapies, and/or supplements. Patient has no known medications.Allergy ReviewAllergy List was reviewed and/or updated during this visit. Patient has no known allergies.Adult Preventive CareLabs/Meds/Other Counseling-Nutrition and Physical Activity:BMI Interpretation: Overweight (10/07/2019) Counseling: Done (10/07/2019) Physical Activity: Done (10/07/2019)Review of Systems General: Denies chills, dizziness, fatigue, fever, headache, feeling ill. Gastrointestinal: Complains of nausea, pain or discomfort, heartburn. Denies vomiting, diarrhea, constipation, blood in stool, black or tarry stools. Neurologic: Denies weakness, feeling faint. Physical ExamGeneral Appearance: well nourished, well hydrated, no acute distressEyes, External: conjunctivae and lids normal, EOMIRespiratory, Auscultation: clear to auscultation bilaterally; no rales, rhonchi, or wheezesCardiovascular, Auscultation: S1, S2 audible; no murmur, rub, or gallop; RRRPeripheral Circulation: no clubbing, cyanosis, edema, or varicositiesAbdomen: soft, non- tender, no masses, bowel sounds normalGait & Station: normalOrientation: oriented to time, place, and personMood & Affect: mildly anxious appearing, good eye contact, speech clearJudgment & Insight: intactCare Management Plan Transitions of CareInboundRate Your HealthIn general, would you say your health is? GoodAssessment & Plan Problems:Added: Polyp of gallbladder (ICD-575.6) (VYR40-Z37.4) Assessment: Instructions: Will fax ultrasound report to your GI provider, polyp was 0.4mm in size. Continue per your GI specialist.Changed:From: Dx of BMI 31.0-31.9 (ICD-V85.31) (KOU48-K43.31) To: Body Mass Index 29.0-29.9, adult (ICD-V85.25) (CCG13-J36.29)Assessed:Obesity (ICD-278.00) (QFR50-C98.09) Assessment: Instructions: Recommend healthy lifestyle modification. Encourage portion control, healthy food choices, and increasing routine physical activity. Recommendation is for 150 minutes throughout the week of cardiovascular exercise.Body Mass Index 29.0-29.9, adult (ICD-V85.25) (SUR52-H90.29) Assessment: Instructions: Continue your healthy weight loss efforts as you are having success with this.Patient Instructions/Care Plan: Polyp of gallbladder: Will fax ultrasound report to your GI provider, polyp was 0.4mm in size. Continue per your GI specialist.Obesity: Recommend healthy lifestyle modification. Encourage portion control, healthy food choices, and increasing routine physical activity. Recommendation is for 150 minutes throughout the week of cardiovascular exercise.Body Mass Index 29.0-29.9- adult: Continue your healthy weight loss efforts as you are having success with this. Plan developed in collaboration with patient and/or familyAllergies:No Known Allergies (updated 10/07/2019) Orders:Adult - Ofc Vst, EST, Level III [CPT-99132] Follow-Up Return to clinic: Aug 2020, as needed for preventive care visitAdditional Follow-Up: annual PEClinical Visit Summary Completed] Name Value Range Interpretation Code Description Data Casie rce(s) Supporting Document(s) ID Date Data Source [id number] 08/23/2019 08:17:[address] [facility] Measurements & CalculationsHeight: 72 inches (6 ft. 0 in.) 182.88 cm Weight: 221.0 pounds 100.45 kg Body Mass Index (BMI): 30.08BMI Interpretation: ObeseBody Surface Area (BSA): 2.22Weight Management Education Done (Nutrition/Physical Activity)Vital SignsTemperature: 97.5F oral Pulse Rate: 71 beats/minuteRespirat ory Rate: 17 respirations/minuteBlood Pressure: 127/89 left arm sitting automaticO2 Saturation: 97% room airVital Signs performed by: Alona Pereyra LPN, August 23, 2019 8:28 AMVital Signs performed by: Yariel ARGUELLO, August 23, 2019 8:34 AMInitial Intake Information from: patientRoom #: 14Infectious Disease- Travel Have you or your sexual partner travelled outside of the country recently? NoSmoking, Tobacco or Smoke Exposure StatusSmoke Status: never smokerTobacco Use: NoPassive Smoke Exposure: NoHealthcare HistorySince your last office visit...Have you been admitted to the hospital? NoHave you been to an emergency room (ER) or urgent care clinic? NoHave you seen another healthcare provider? NoHave you seen a dentist? NoIntake performed by: Alona Pereyra LPN, August 23, 2019 8:19 AMRate Your HealthIn general, would you say your health is? FairPain AssessmentAre you currently having any pain which... You would like your provider to address? No Affects your activity level? NoDepression Screening - PHQ-2Over the last two weeks, have you... Had little interest or pleasure in doing things? Not at all Been feeling down, depressed, or hopeless? Not at all PHQ-2 Score: 0Anxiety Screening - JASPAL-2Over the last two weeks, have you been... Feeling nervous, anxious, or on edge? Not at all Unable to stop or control worrying? Not at all JASPAL-2 Score: 0PRAPARE Sociodemographic Characteristics Race: White Ethnicity: Not or Preferred Language: EnglishFamily and Home Address: [address] [place] [address] What is your housing situation today? I have housing Are you worried about losing your housing? NoMoney and Resources What is the highest level of school that you have finished? some college Employed? Yes Your current work situation? [employer] [facility]In the past year, have you or any family members you live with been unable to get any of the following when it was really needed? Denies Insecurity: food, utilities, clothing, child guidance counselor, phone, legal services, otherIn the past year, have you had trouble affording costs associated with health insurance (such as deductibles, co-payments, etc.)? NoSocial and Emotional Health How often do you see or talk to people that you care about and feel close to? More than 5 times a week How stressed are you? Quite a bitAdditional Optional Domains In the past 3 months, have you spent more than 2 nights in a row in a alf, shelter, retirement center or juvenile correctional facility? No Has lack of transportation kept you from medical appointments or from getting your medications? NoIn the past year, have you had trouble getting any of the following when it was really needed (check all that apply)?noneIn the past year, have you had trouble paying the costs associated with health care or medicine (such as co-payments, costs for services, prices of medicines)? NoHow confident are you that you can control and manage most of your health problems? Very confident Are you a refugee? No (Country of origin: [place]) Do you feel physically and emotionally safe where you live? Yes In the past year, have you been afraid of a partner, ex-partner? NoScreening, Brief Intervention, & Referral to Treatment (SBIRT)Pre-Screening Questions How many times have you have 5 or more drinks in a day? 0How many times have you used an illegal drug or used a prescription medication for a non- medical reason? 0Performed by: Alona Pereyra LPN, August 23, 2019 8:24 AMPatient History Medical History:sickness induced asthma Surgical History:tissue removal from left chest area age 17Family History:Mother: alive and well1/2 sister from cancer in her 40s (unknown type, diagnosed with an ultrasound)Social/Personal History: Smoking Status: never smokerChief Complaintannual examHistory of Present Illness (HPI)38 yo male here for annual physical, to review labs, and find out what is causing his abd discomfort.Pt reports he has not started omeprazole because "I don't like to take medications". He reports that since last visit he has reduced portion sizes and trying to eat less fatty/processed foods with improvement in his abdominal pain. Pt reports intermittent generalized abdominal pressure. Denies fever, vomiting, diarrhea.Pt reports he will be moving with his family in October 2019, is looking forward to resuming his prior healthy eating habits and regular exercise routine. Pt reports currently at his highest weight and is unhappy with his current weight level.HPI performed by: Yariel ARGUELLO, August 23, 2019 8:37 AMProblem ReviewProblem List was reviewed and/or updated during this visit.Medication Reconciliation & ReviewMedication List was reviewed and/or updated during this visit, including review of any foql-gmn-euvlwlg medications, herbal therapies, and/or supplements.Allergy ReviewAllergy List was reviewed and/or updated during this visit. Patient has no known allergies.Adult Preve ntive CareProvider Calculated and Reviewed all Clinical Protocols for patient today. Labs/Meds/Other Counseling-Nutrition and Physical Activity:BMI Interpretation: Obese (08/23/2019) Counseling: Done (08/23/2019) Physical Activity: Done (08/23/2019)Review of Systems General: Denies loss of appetite, chills, dizziness, fatigue, fever, headache, feeling ill. Eyes: Denies blurring of vision, double vision. Ears/Nose/Throat: Denies earache, nasal congestion, sore throat, swollen glands. Cardiovascular: Denies chest pain, palpitations, feeling faint. Respiratory: Denies cough, shortness of breath, wheezing. Gastrointestinal: Complains of pain or discomfort. Denies nausea, vomiting, diarrhea, constipation, blood in stool, black or tarry stools. Genitourinary: Denies urinary incontinence, pain with urination, burning with urination, urinary frequency, urinary hesitancy, urinary urgency, urinary urgency at night, blood in urine. Musculoskeletal: Denies joint swelling, muscle aches. Skin: De nies rash. Neurologic: Denies numbness/tingling, feeling faint. Psychiatric: Denies depression, anxiety, feeling stressed. Physical ExamGeneral Appearance: well nourished, well hydrated, no acute distressEyes, External: conjunctivae and lids normal, EOMIExternal Ears: normal, no lesions or deformitiesHearing: grossly intactOtoscopy: canals clear, tympanic membranes intact, no fluid, light reflex intact bilaterallyExternal Nose: normal, no lesions or deformitiesNasal: mucosa, septum, and turbinates normal, nares patentLips/Teeth/Gums: normal dentition, no gingival inflammation, no labial lesionsPharynx: tongue normal, posterior pharynx without erythema or exudate, no thrush/aphthous ulcerRespiratory, Auscultation: clear to auscultation bilaterally; no rales, rhonchi, or wheezesRespiratory, Effort: no intercostal retractions or use of accessory musclesCardiovascular, Auscultation: S1, S2 audible; no murmur, rub, or gallop; RRRPeripheral Circulation: no clubbing, cyanosis, edema, or varicositiesAbdomen: soft, non-tender, no masses, bowel sounds normalGait & Station: normalSkin, Inspection: no rashes, lesions, or ulcerationsOrientation: oriented to time, place, and personMood & Affect: no depression, anxiety, or agitationJudgment & Insight: intactRate Your HealthIn general, would you say your health is? FairAssessment & Plan Problems:Added: Encounter for general adult medical examination without abnormal findings (KGC08-R57.00) Assessment: Instructions: Recommend routine annual physicals. Continue with routine dental and vision care.Person consulting for explanation of examination or test findings (ICD-V65.8) (SSW18-O39.2) Assessment: Instructions: Your labs were reviewed in detail today.Hypertriglyceridemia (ICD-272.1) (UQH95-O31.1) Assessment: Instructions: Low fat diet reviewed. Please increase routine physical activity. Recommend monitoring this annually.Assessed:Obesity (ICD- 278.00) (OGH70-M54.09) Assessment: Instructions: Recommend healthy life style modification. Encouurage portion control, healthy food choices, and increasing routine physical activity. Recommendation is for 150 minutes throughout the week of cardiovascular exercise.BMI 31.0-31.9 (ICD-V85.31) (LVL26-R06.31) Assessment: Instructions: Recommend healthy lifestyle modification. Encouurage portion control, healthy food choices, and increasing routine physical activity. Recommendation is for 150 minutes throughout the week of cardiovascular exercise.Epigastric pain (ICD-789.06) (UIL53-U42.13) Assessment: Instructions: Improved with diet modifications. Abdominal USN ordered, this will be scheduled, you should expect a call from our office in the near future with further details. Please consider taking omeprazole as prescribed for reduction in stomach acid for a trial period.Generalized abdominal tenderness (MXA26-D30.817) Assessment: Instructions: Improved with diet modifications. Abdominal USN ordered, this will be scheduled, you should expect a call from our office in the near future with further details. Please consider taking omeprazole as prescribed for reduction in stomach acid for a trial period.Patient Instructions/Care Plan: Encounter for general adult medical examination without abnormal findings: Recommend routine annual physicals. Continue with routine dental and vision care.Person consulting for explanation of examination or test findings: Your labs were reviewed in detail today.Obesity: Recommend healthy lifestyle modification. Encouurage portion control, healthy food choices, and increasing routine physical activity. Recommendation is for 150 minutes throughout the week of cardiovascular exercise.BMI 31.0-31.9: Recommend healthy lifestyle modification. Encouurage portion control, healthy food choices, and increasing routine physical activity. Recommendation is for 150 minutes throughout the week of cardiovascular exercise.Epigastric pain: Improved with diet modifications. Abdominal USN ordered, this will be scheduled, you should expect a call from our office in the near future with further details. Please consider taking omeprazole as prescribed for reduction in stomach acid for a trial period.Generalized abdominal tenderness: Improved with diet modifications. Abdominal USN ordered, this will be scheduled, you should expect a call from our office in the near future with further details. Please consider taking omeprazole as prescribed for reduction in stomach acid for a trial period.Hypertriglyceridemia: Low fat diet reviewed. Please increase routine physical activity. Recommend monitoring this annually. Plan developed in collaboration with patient and/or familyMedications:OMEPRAZOLE 20 MG ORAL CAPSULE DELAYED RELEASEAllergies:No Known Allergies (updated 08/23/2019) Orders:Ultrasound-Abdomen, Complete [CPT- 91647] Preventive, Est, (18-39) [CPT-49970] Follow-Up Return to clinic: in 2 months for follow upAdditional Follow-Up: referral follow-upClinical Visit Summary CompletedVaccines Administered/Entered:Vaccination Group: InfluenzaSeries: 1 NOT GIVENVaccination: Flucelvax Quadrivalent PF (4y+) AdultReason Not Given: Patient decisionEntered Date: 08/23/2019 12:00 AMComments: Pt refusedEntered by: Alona Pereyra LPN Name Value Range Interpretation Code Description Data Casie rce(s) Supporting Document(s) ID Date Data Source [id number] 08/16/2019 09:04:[address] [facility] In-House Blood TestsDate/Time Colle cted: August 16, 2019 9:04 AMTest Result Reference Range Normal ValueComments: blood draw done in offcie done in the left ac tolerated well Jamshid Denny MA, August 16, 2019 9:04 AMAssessment & Plan Orders:[id number] Vst-Est Level I [CPT-60521] 11623 - Venipuncture [CPT-23593] Name Value Range Interpretation Code Description Data Casie rce(s) Supporting Document(s) ID Date Data Source [id number] 08/16/2019 08:30:00 AM [facility] Name Value Range Interpretation Code Description Data Casie rce(s) Supporting Document(s) HCT 47.2 % 42.0-52.[address] [facility] HGB 16.9 g/dL 13.5-17.[address] [facility] MCH 35.8 G/DL pg 32.0-36.[address] [facility] MCHC 31.6 PG % 27.0-33.[address] [facility] PLATELETS 185 10 10*3/mm3 150-[address] [facility] RBC 5.34 10 10*6/mm3 4.30-6.[address] [facility] RDW 12.1 % 11.5-14.[address] [facility] WBC TOTAL 6.6 4.0-10.[address] [facility] ID Date Data Source [id number] 08/16/2019 08:30:00 AM [facility] Name Value Range Interpretation Code Description Data Casie rce(s) Supporting Document(s) HGBA1C 5.4 % N [facility] ID Date Data Source [id number] 08/16/2019 08:30:00 AM [facility] Name Value Range Interpretation Code Description Data Casie rce(s) Supporting Document(s) VIT D25 TOT 24.7 ng/mL 30.0-100.0 L [facility] BG FASTING 96 mg/dL 70-100 N [facility] T4, FREE 0.84 ng/dL 0.76-1.46 N [facility] TSH 2.830 microintl units/mL 0.358-3.740 N [facility] ID Date Data Source [id number] 08/05/2019 12:53:21 PM [facility] Measurements & CalculationsHeight: 72 inches (6 ft.) 182.88 cm Weight: 229 pounds 6 oz. 104.26 kg Body Mass Index (BMI): 31.22BMI Interpretation: ObeseBody Surface Area (BSA): 2.26Weight Management Education Done (Nutrition/Physical Activity)Vital SignsTemperature: 96.9FPulse Rate: 94 beats/minuteRespiratory Rate: 16 respirat ions/minuteBlood Pressure: 138/89 left arm sitting automaticO2 Saturation: 96% room airVital Signs performed by: Lilli Clark MA, August 05, 2019 1:05 PMInitial Intake Information from: patientRoom #: 9Infectious Disease- Travel Have you or your sexual partner travelled outside of the country recently? NoSmoking, Tobacco or Smoke Exposure StatusSmoke Status: never smokerTobacco Use: NoPassive Smoke Exposure: NoHealthcare HistorySince your last office visit...Have you been admitted to the hospital? NoHave you been to an emergency room (ER) or urgent care clinic? Yes - [facility]- painEmergency room (ER) or urgent care date reported today: 07/08/2019Have you seen another healthcare provider? NoHave you seen a dentist? NoIntake performed by: Lilli Clark MA, August 05, 2019 12:59 PMRate Your HealthIn general, would you say your health is? FairPain AssessmentAre you currently having any pain which... You would like your provider to address? Yes Affects your activity level? YesPain AssessmentPain ScaleNumeric Rating Scale: 4 / 10Location: left side of chest and adbFrequency: DailyCharacter/Quality: achingIs the pain radiating? YesScreening, Brief Intervention, & Referral to Treatment (SBIRT)Pre-Screening Questions How many times have you have 5 or more drinks in a day? 0How many times have you used an illegal drug or used a prescription medication for a non-medical reason? 0Performed by: Lilli Clark MA, August 05, 2019 1:01 PMPatient History Medical History:sickness induced asthma Surgical History:No known surgical historyFamily History:Mother: alive and well1/2 sister from cancer in her 40s (unknown type, diagnosed with an ultrasound)Social/Personal History: Smoking Status: never smokerChief Complaintnew acute -body painHistory of Present Illness (HPI)38 year old male patient here today to establish care and to discuss pain located on LUQ to LLQ pain. Pt reports the last year of ongoing/intermittent pains. Pt reports previous treatment in [place] office in January 2019, pt reports he had normal urinalysis and blood work and reports the testing was negative. Pt reports the pain is usually in the LUQ region and radiates to the LLQ, sometimes present RUQ. Admits to significant weight gain over the last few years. Patient states epigastrium is very sensitive to touchfor the last few weeks, this has been improved with having a BM recently. Denies sensation of heartburn but states the pain can be worse with certain foods (ie pepperoni). Patient states no history of GI cancer that he is aware of, but has an unclear cancer history in his paternal half sister and his father which is believed to be secondary to alcohol and tobacco abuse.Patient states he gets lightheaded lately. Denies syncope. Pt states he attributes this to being busy and drinking less fluids. Pt states it usually occurs in the evening when he goes from sit to stand.Patient states he has a bump on left wrist and states it is painful when bumped. Denies pain to light touch or ROM of the wrist. Denies injury/trauma or incident when the bump began. Pt also admits to rosacea since he was a teen, most prevalent on his right cheek. Previously seen by dermatology at age 18 but none recently. HPI performed by: Yariel ARGUELLO, August 05, 2019 1:06 PMTransitions of Care InboundProblem ReviewProblem List was reviewed and/or updated during this visit.Medication Reconciliation & ReviewMedication List was reviewed and/or updated during this visit, including review of any [id number] medications, herbal therapies, and/or supplements.Allergy ReviewAllergy List was reviewed and/or updated during this visit. Patient has no known allergies.Adult Preventive CareProvider Calculated and Reviewed all Clinical Protocols for patie nt today. Labs/Meds/Other Counseling-Nutrition and Physical Activity:BMI Interpretation: Obese (08/05/2019) Counseling: Done (08/05/2019) Physical Activity: Done (08/05/2019)Fall Prevention: Regular Exercise: done (08/05/2019)Review of Systems General: Denies loss of appetite, chills, dizziness, fatigue, fever, headache, feeling ill, night sweats. Cardiovascular: Complains of feeling faint. Denies chest pain, palpitations, trouble breathing w/exertion, SOB upon lying down, SOB at night, peripheral edema, elevated blood pressure. Respiratory: Denies cough, difficulty breathing, shortness of breath, wheezing. Gastrointestinal: Complains of pain or discomfort, abdominal pain. Denies nausea, vomiting, diarrhea, constipation, pain with BM, change in bowel habits, blood in stool, black or tarry stools, heartburn. Genitourinary: Denies urinary incontinence, pain with urination, burning with urination, urinary frequency, urinary hesitancy, urinary urgency, incomplete emptying, blood in urine. Musculoskeletal: Denies back pain, joint swelling, body aches, muscle aches, muscle cramps, muscle weakness, stiffness, recent injury. left hip painSkin: rosacea on right cheek, firm bump on left wristNeurologic: Complains of feeling faint. Denies weakness, numbness/tingling, seizures, vertigo. Psychiatric: Complains of feeling stressed. Denies depression, anxiety, suicidal ideation. Physical ExamGeneral Appearance: well nourished, well hydrated, no acute distress, maleEyes, External: conjunctivae and lids normal, EOMIChest Wall: minimally tender over xyphoid process without bruising, no s welling or crepitations to palpationRespiratory, Auscultation: clear to auscultation bilaterally; no rales, rhonchi, or wheezesRespiratory, Effort: no intercostal retractions or use of accessory musclesCardiovascular, Auscultation: S1, S2 audible; no murmur, rub, or gallop; RRRPeripheral Circulation: no clubbing, cyanosis, edema, or varicositiesAbdomen: soft, non-tender, no masses, bowel sounds normal, no organomegalyGait & Station: normalBack: midline, straight, no lordosis or kyphosis, no tenderness to palpation, no CVA tendernessUpper Extremity, Left: FROM of left wrist without painSkin, Insp ection: erythematous patch on right cheek without lesions, 5mm firm raised nodule on palmar aspect of lateral left wrist, no apparent tendon involvement, nontender to palpationOrientation: oriented to time, place, and personMood & Affect: no depression or aggitation, somewhat anxious appearing, talkative throughout visitJudgment & Insight: intactCare Management Plan Transitions of CareInboundRate Your HealthIn general, would you say your health is? FairAssessment & Plan Problems:Added: Generalized abdominal tenderness (ICD10- R10.817) Assessment: Instructions: GI referral has been sent, you will be contacted in the next few weeks regarding the status of this referral. Recommend 8 weeks of omeprazole once daily. Recommend plenty of fluids, bland diet (avoid acidic and greasy foods). Please avoid alcohol as this increases stomach acid and can cause more discomfort.Epigastric pain (ICD-789.06) (ICD10- R10.13) Assessment: Instructions: As above. Labs have been ordered to eval uate this further. You will receive a phone call if labs are abnormal.Nodule of skin of left forearm (OYQ48-N16.32) Assessment: Instructions: Referral generated to dermatology for possible excision/removal.Rosacea, unspecified (AKV95-W11.9) Assessment: Instructions: Referral for dermatology for further evaluation and management.Screening for diabetes mellitus (ICD-V77.1) (EJF66-C58.1) Assessment: Instructions: Fasting labs have been ordered for you today. When labs are drawn, please ensure that you have had nothing to eat or drink for 8-10 hours prior to the blood drawn. Water or black coffee is OK to have before the blood draw.Screening for lipoid disorders (ICD-V77.91) (BKI21-H77.220) Assessment: Instructions: Fasting labs have been ordered for you today. When labs are drawn, please ensure that you have had nothing to eat or drink for 8-10 hours prior to the blood drawn. Water or black coffee is OK to have before the blood draw.Obesity (ICD-278.00) (YTP41-O01.09) Ass essment: Instructions: Recommend healthy lifestyle modification. Encouurage portion control, healthy food choices, and increasing routine physical activity. Recommendation is for 150 minutes throughout the week of cardiovascular exercise.BMI 31.0-31.9 (ICD-V85.31) (WEZ13-S31.31) Assessment: Instructions: Recommend healthy lifestyle modification. Encouurage portion control, healthy food choices, and increasing routine physical activity. Recommendation is for 150 minutes throughout the week of cardiovascular exercise.Health Screening (ICD-V70.0) (JCJ35-N98.9) Assessment: Instruction s: Routine labs have been ordered. Recommend healthy diet and physical activity routinely.Patient Instructions/Care Plan: Generalized abdominal tenderness: GI referral has been sent, you will be contacted in the next few weeks regarding the status of this referral. Recommend 8 weeks of omeprazole once daily. Recommend plenty of fluids, bland diet (avoid acidic and greasy foods). Please avoid alcohol as this increases stomach acid and can cause more discomfort.Epigastric pain: As above. Labs have been ordered to evaluate this further. You will receive a phone call if labs are abnormal.Nodule of skin of left forearm: Referral generated to dermatology for possible excision/removal.Rosacea- unspecified: Referral for dermatology for further evaluation and management.Screening for diabetes mellitus: Fasting labs have been ordered for you today. When labs are drawn, please ensure that you have had nothing to eat or drink for 8-10 hours prior to the blood drawn. Water or black coffee is OK to have before the blood draw.Screening for lipoid disorders: Fasting labs have been ordered for you today. When labs are drawn, please ensure that you have had nothing to eat or drink for 8-10 hours prior to the blood drawn. Water or black coffee is OK to have before the blood draw.Obesity: Recommend healthy lifestyle modification. Encouurage portion control, healthy food choices, and increasing routine physical activity. Recommendation is for 150 minutes throughout the week of cardiovascular exercise.BMI 31.0-31.9: Recommend healthy lifestyle modification. Encouurage portion control, healthy food choices, and increasing routine physical activity. Recommendation is for 150 minutes throughout the week of cardiovascular exercise.Health Screening: Routine labs have been ordered. Recommend healthy diet and physical activity routinely. Plan developed in collaboration with patient and/or familyMedications:OMEPRAZOLE 20 MG ORAL CAPSULE DELAYED RELEASEMedication Changes:New Prescription:OMEPRAZOLE 20 MG ORAL CAPSULE DELAYED RELEASE-Take 1 tablet by mouth once daily in the morning Qty: 60[Capsule] Refills: 0 Method: ElectronicAllergies:No Known Allergies (updated 08/05/2019) Orders:COMP METABOLIC PANEL [CPT-97037] CBC W/DIFF [CPT-69305] HgBA1c [CPT-23695] LIPID PANEL [CPT-73284] TSH [CPT-58700] T-4 free [CPT-57081] Vitamin D 250H Unspecified [CPT-52875] URINALYSIS [CPT-92328] Amylase [CPT-71994] Lipase [CPT- 43097] H Pylori Antibodies (IgG) [CPT-89731] Gastroenterology Consult [CPT- 32175] Dermatology Consult [CPT-93790] Follow-Up Return to clinic: in 1-2 weeks for follow upAdditional Follow-Up: lab reviewClinical Visit Summary CompletedMedications:OMEPRAZOLE 20 MG ORAL CAPSULE DELAYED RELEASE (OMEPRAZOLE) Take 1 tablet by mouth once daily in the morning #60[Capsule] x 0 Route:ORAL Entered and Authorized by: Yariel ARGUELLO Method used: Electronically to [facility]* (retail) [id number] [place] [address] [address] [place] [address] Note to Pharmacy: Route: ORAL; Indications: GENERALIZED ABDOMINAL TENDERNESS;EPIGASTRIC PAIN RxID: [id number] Health Maintenance and Education Smoking Status: Denies ever smoking. (08/05/2019)Drugs and Tobacco Passive Smoke Exposure: NoTobacco Smoking Status: never smokerExercise Activity: none Education: Advised on exercising regularly provided.Health Education Sexual Activity Are you sexually active? Yes Assess ment & Plan Orders:Adult - Ofc Vst, NEW, Level III [CPT-00582] Name Value Range Interpretation Code Description Data Casie rce(s) Supporting Document(s) Procedure Vital Signs ID Date Data Source UNK Name Value Range Interpretation Code Description Data Source(s) Body weight 3740.8 [oz_av] 3740.8 [oz_av] ATHEN A ([facility]) Systolic blood pressure 121 mm[Hg] 121 mm[Hg] A [facility] ([facility]) Body mass index (BMI) [Ratio] 31.7 kg/m2 31.7 k g/m2 MARK ([facility]) Body height 72 [in_i] 72 [in_i] MARK ([facility]) Diastolic blood pressure 79 mm[Hg] 79 mm[Hg] MARK ([facility]) Body weight 3510.08 [oz_av] 3510.08 [oz_av] ATH [place] ([facility]) Systolic blood pressure 106 mm[Hg] 106 mm[Hg] A [facility] ([facility]) Body height 72 [in_i] 72 [in_i] MARK ([facility]) Diastolic blood pressure 74 mm[Hg] 74 mm[Hg] MARK ([facility]) Body weight 3456 [oz_av] 3456 [oz_av] MARK ([facility]) Systolic blood pressure 115 mm[Hg] 115 mm[Hg] A [facility] ([facility]) Body height 72 [in_i] 72 [in_i] MARK ([facility]) Diastolic blood pressure 75 mm[Hg] 75 mm[Hg] MARK ([facility]) Body weight 97.978 kg 97.978 kg KIM ([facility], ) Body mass index (BMI) [Ratio] 29.3 kg/m2 29.3 k g/m2 MEDPRITI ([facility], ) Body weight 216.00 [lb_av] 216.00 [lb_av] EMIJASON T ([facility], ) Body height 72 [in_i] 72 [in_i] KIM ([facility], ) 6'0" Diastolic blood pressure 71 mm[Hg] 71 mm[Hg] KIM ([facility], ) Systolic blood pressure 135 mm[Hg] 135 mm[Hg] Norman MAEPRITI ([facility], ) Body weight 3536 [oz_av] 3536 [oz_av] MARK ([facility]) Systolic blood pressure 127 mm[Hg] 127 mm[Hg] A [facility] ([facility]) Body height 72 [in_i] 72 [in_i] MARK ([facility]) Diastolic blood pressure 89 mm[Hg] 89 mm[Hg] MARK ([facility]) Body weight 3670.08 [oz_av] 3670.08 [oz_av] ATH [place] ([facility]) Systolic blood pressure 138 mm[Hg] 138 mm[Hg] A THENA ([facility]) Body height 72 [in_i] 72 [in_i] MARK ([facility]) Diastolic blood pressure 89 mm[Hg] 89 mm[Hg] MARK ([facility])
--- OUTSIDE RECORDS SUMMARY | 2020-08-23 16:37 | CCD ---
Author Author [facility] Organization [facility] Address Unknown Phone Unavailable Care Team Providers Care Registered Private Duty Nurse Name Role Phone Nic, A Gisela COMMUNITY RELATIONS LIAISON Unavailable Unavailable Nic, A Gisela COMMUNITY RELATIONS LIAISON Unavailable Unavailable Nic, A Gisela COMMUNITY RELATIONS LIAISON Unavailable Unavailable Nic, A Gisela COMMUNITY RELATIONS LIAISON Unavailable Unavailable Nic, A Gisela COMMUNITY RELATIONS LIAISON Unavailable Unavailable Nic, A Gisela COMMUNITY RELATIONS LIAISON Unavailable Unavailable Nic, A Gisela COMMUNITY RELATIONS LIAISON Unavailable Unavailable Nic, A Gisela COMMUNITY RELATIONS LIAISON Unavailable Unavailable Nic, A Gisela COMMUNITY RELATIONS LIAISON Unavailable Unavailable Nic, A Gisela COMMUNITY RELATIONS LIAISON Unavailable Unavailable Nic, A Gisela COMMUNITY RELATIONS LIAISON Unavailable Unavailable Nic, A Gisela COMMUNITY RELATIONS LIAISON Unavailable Unavailable Nic, A Gisela COMMUNITY RELATIONS LIAISON Unavailable Unavailable Nic, A Gisela COMMUNITY RELATIONS LIAISON Unavailable Unavailable Nic, A Gisela COMMUNITY RELATIONS LIAISON Unavailable Unavailable Nic, A Gisela COMMUNITY RELATIONS LIAISON Unavailable Unavailable Nic, A Gisela COMMUNITY RELATIONS LIAISON Unavailable Unavailable Nic, A Gisela COMMUNITY RELATIONS LIAISON Unavailable Unavailable Nic, A Gisela COMMUNITY RELATIONS LIAISON Unavailable Unavailable Nic, A Gisela COMMUNITY RELATIONS LIAISON Unavailable Unavailable Nic, A Gisela COMMUNITY RELATIONS LIAISON Unavailable Unavailable Nic A Gisela COMMUNITY RELATIONS LIAISON Unavailable Unavailable Nic, A Gisela COMMUNITY RELATIONS LIAISON Unavailable Unavailable Nic, A Gisela COMMUNITY RELATIONS LIAISON Unavailable Unavailable Nic, A Gisela COMMUNITY RELATIONS LIAISON Unavailable Unavailable Nic, A Gisela COMMUNITY RELATIONS LIAISON Unavailable Unavailable Nic, A Gisela COMMUNITY RELATIONS LIAISON Unavailable Unavailable Scordo, M Lilli PA Unavailable [...] M Lilli PA Unavailable Unavailable Nic, Gisela COMMUNITY RELATIONS LIAISON COMMUNITY RELATIONS LIAISON Unavailable Unavailable HERNANDEZ, GABRIEL YARIEL RPA-C Unavailable [...] is protected by Article 27-F of the [facility] Public Health law. If you continue you may have access to information: Regarding HIV / AIDS; Provided by facilities licensed or operated by the [facility] Office of Mental Health; or Provided by the [facility] Office for People With Developmental Disabilities. If such information is present, then the following [facility] mandated warning applies: This information has [...] law may result in a fine or long-term sentence or both. A general authorization for the release of medical or other information is NOT sufficient authorization for further disc losure. Family History Family Member Name Family Member Gender Family Member Status Date o f Status Description Data Source(s) Unknown Unknown Problem [facility] ([facility], [facility]) father Encounters Encounter Providers Location Date Indications Data Source(s ) Lilli Alarcon PA-C: [address], [place] [address], Ph. Attender: Lilli PENA [facility] 08/13/2020 12:00:00 AM EST MARK ([facility]) Outpatient Attender: YARIEL MILLS 07/06/2020 12:02:15 AM EST [facility] Outpatient Attender: MARILYN SALINAS 02/12/2020 08:51:01 AM EDT [facility] Outpatient Attender: MARILYN GARCIA NC FP 01/28/2020 12:03:02 PM EDT [facility] Health Outpatient Attender: MARILYN GARCIA NC FP 01/22/2020 09:04:02 AM EDT [facility] Health Outpatient Attender: MARILYN GARCIA NC FP 01/17/2020 03:07:00 PM EDT [facility] Outpatient Attender: YARIEL MARY RPA-C FP 01/16/2020 01:25:00 PM EDT [facility] Health Outpatient Attender: Gisela OLSON FP 01/16/2020 10:3 0:07 AM EDT [facility] Health Outpatient Attender: WESLEY OLSON FP 01/15/2020 04:55:59 P M EDT [facility] Health Outpatient Attender: WESLEY OLSON FP 01/15/2020 04:49:01 P M EDT [facility] Health Outpatient Attender: WESLEY OLSON FP 01/15/2020 03:59:00 P M EDT [facility] Health Outpatient Attender: WESLEY OLSON FP 10/14/2019 04:49:01 P M EDT [facility] Health Outpatient Attender: Gisela OLSON FP 10/14/2019 09:1 8:01 AM EDT [facility] Outpatient Attender: WESLEY OLSON FP 10/07/2019 09:00:04 A [facility] Outpatient Attender: WESLEY OLSON FP 10/07/2019 08:35:01 A M [facility] Health Outpatient Attender: WESLEY OLSON FP 10/03/2019 12:46:02 P M [facility] Outpatient 09/18/2019 02:13:00 PM [facility] Outpatient Attender: WESLEY OLSON FP 09/12/2019 10:14:04 A M [facility] Outpatient Attender: WESLEY OLSON FP 09/04/2019 01:55:01 P M [facility] Outpatient Attender: Gisela OLSON FP 08/26/2019 08:0 9:01 AM [facility] Outpatient Attender: WESLEY OLSON FP 08/23/2019 09:02:01 A [facility] Outpatient Attender: WESLEY Lucero COMMUNITY RELATIONS LIAISON FP 08/23/2019 08:08:00 A [facility] Outpatient Attender: WESLEY Lucero COMMUNITY RELATIONS LIAISON FP 08/22/2019 01:36:02 P [facility] Outpatient Attender: Gsiela Lucero COMMUNITY RELATIONS LIAISON FP 08/22/2019 01:3 6:01 PM [facility] Outpatient Attender: Gisela Lucero COMMUNITY RELATIONS LIAISON FP 08/22/2019 01:3 0:05 PM [facility] Outpatient Attender: WESLEY Lucero COMMUNITY RELATIONS LIAISON FP 08/16/2019 10:17:00 A [facility] Outpatient Attender: WESLEY Lucero COMMUNITY RELATIONS LIAISON FP 08/16/2019 08:41:01 A M [facility] Outpatient Attender: Gisela Lucero COMMUNITY RELATIONS LIAISON 08/05/2019 02:3 0:04 PM [facility] Outpatient Attender: WESLEY Lucero COMMUNITY RELATIONS LIAISON 08/05/2019 02:28:03 P [facility] Outpatient Attender: Gisela Lucero COMMUNITY RELATIONS LIAISON 08/05/2019 02:2 8:03 PM [facility] Outpatient Attender: WESLEY Lucero COMMUNITY RELATIONS LIAISON 08/05/2019 01:11:00 P [facility] Outpatient Attender: WESLEY Lucero COMMUNITY RELATIONS LIAISON 08/05/2019 01:10:01 P [facility] Outpatient Attender: WESLEY Lucero COMMUNITY RELATIONS LIAISON 08/05/2019 01:01:00 P [facility] Outpatient Attender: WESLEY Lucero COMMUNITY RELATIONS LIAISON FP 08/05/2019 12:59:00 P [facility] Outpatient Attender: WESLEY Lucero COMMUNITY RELATIONS LIAISON FP 08/05/2019 12:48:00 P [facility] Outpatient Attender: WESLEY Lucero COMMUNITY RELATIONS LIAISON FP 08/05/2019 12:45:00 P [facility] Outpatient Attender: WESLEY Lucero COMMUNITY RELATIONS LIAISON FP 08/01/2019 09:59:00 A M [facility] Outpatient Attender: Gisela Lucero COMMUNITY RELATIONS LIAISON FP 08/01/2019 09:5 8:01 AM [facility] Outpatient Attender: WESLEY Lucero COMMUNITY RELATIONS LIAISON FP 08/01/2019 09:58:01 A M [facility] Medications Medication Brand Name Start Date Product Form Dose Route Admi nistrative Instructions Pharmacy Instructions Status Indications Reaction Description Data Source(s) magnesium citrate 58.2 MG/ML Oral Solution Magnesium Citrate 10/03/2019 12:00:00 AM EST active [facility] ([facility] ) POLYETHYLENE GLYCOL 3350 105 MG/ML / Pot assium Chloride 0.44997 MEQ/ML / Sodium Bicarbonate 0.017 MEQ/ML / Sodium Chloride 0.0479 MEQ/ML Oral Solution [TriLyte] Trilyte 10/03/2019 12:00:00 AM EST active [facility] ([facility]) No Active Medications 10/03/2019 12:00:00 AM EST completed [facility] ([facility]) POLYETHYLENE GLYCOL 3350 142 MG/ML Oral Solution [Miralax] M iralax 10/03/2019 12:00:00 AM EST active M [facility] ([facility]) Insurance Providers Payer name Policy type / Coverage type Policy ID Covered alliance party ID Covered alliance party's relationship to sharp Policy Sharp Plan Information ANKIT [id number] SP [id number] Managed Care [place] P [id number] S [id number] Medicaid S [id number] S [id number] MEDICAID [id number] SP [id number] Managed Care [place] P [id number] S [id number] Medicaid S UNAVAILABLE S UNAVAILA BLE [facility] P [id number] S [id number] [facility] P [id number] S [id number] MEDICAID M [id number] S [id number] MEDICAID [id number] SP [id number] [facility] P [id number] S [id number] Self Pay P UNAVAILABLE S UNAVAILA BLE BCBS [place] PPO [id number] SP [id number] BCBS/[employer] Commercial [id number] Self VY [id number] BLUE CROSS BLUE SHIELD -O/P [id number] Problems, Conditions, and Diagnoses Code Display Name Description Problem Type Effective Dates Data Source(s) 309.24 Adjustment disorder with anxious mood Ad justment disorder with anxious mood 01/15/2020 04:55:34 PM EDT [facility] 786.59 Tight chest Tight chest 01/15/2020 04:55:34 PM EDT [facility] 785.1 Intermittent palpitations Intermittent palpitations 01/15/2020 04:55:34 PM EDT [facility] [id number] Chest pain Chest Pain Problem 01/15/2020 12:0 0:00 AM EDT - 08/14/2020 12:00:00 AM EST [facility] [facility] ([facility]) [id number] Palpitations Palpitations Problem 01/15/2020 12:00:00 A M EDT [place] [facility] ([facility]) [id number] Adjustment disorder with anxious mood Ad justment Disorder with Anxious Mood Problem 01/15/2020 12:00:00 AM EDT [facility]) K82.4 Cholesterolosis of gallbladder Polyp of gallbladder 10/07/2019 08:58:35 AM [facility] V85.25 Body Mass Index 29.0-29.9, adult Body Mass Index 29.0- 29.9, adult 10/07/2019 08:58:35 AM [facility] [id number] Cholesterolosis of gallbladder Cholesterolosis of Gall bladder Problem 10/07/2019 12:00:00 AM [facility] ([facility]) 272.1 Hypertriglyceridemia Hypertriglyceridemia 08/23 09:01:56 AM [facility] V65.8 Person consulting for explanation of exa mination or test findings Person consulting for explanation of examination or test findings 08/23/2019 09:01:56 AM [facility] Z00.00 Encounter for general adult medical examination without abnormal findings Encounter for general adult medical examination without abno rmal findings 08/23/2019 09:01:56 AM [facility] [id number] Patient asked to attend Patient Asked to Attend [facility] 08/23/2019 12:00:00 AM [facility] - 08/14/2020 12[facility]00:00 [id number] SNOM[facility] CT Concept SNOMED CT Concept Problem 08/23 12:00:00 AM EST - 08/14/2020 12:00:00 AM EST MARK ([facility]) [id number] Pure hyperglyceridemia Pure Hyperglyceridemia Problem 08/23/2019 12:00:00 AM KIRILL FLORES ([facility]) V70.0 Health Screening Health Screening 08/05/2019 02 :27:06 PM [facility] 278.00 Obesity Obesity 08/05/2019 02:27:06 PM COCO Causey [facility] V77.1 Screening for diabetes mellitus Screening for diabetes mellitus 08/05/2019 02:27:06 PM [facility] V77.91 Screening for lipoid disorders Screening for lipoid di sorders 08/05/2019 02:27:06 PM [facility] R22.32 Localized swelling, mass and lump, left upper limb Nodule of skin of left forearm 08/05/2019 02:27:06 PM [facility] 789.06 Epigastric pain Epigastric pain 08/05/2019 02:2 7:06 PM [facility] [id number] Generalized abdominal tenderness Generalized abdominal tenderness 08/05/2019 02:27:06 PM [facility] L71.9 Rosacea, unspecified Rosacea, unspecified 08/05 02:27:06 PM [facility] [id number] Clinical finding Clinical Finding Problem 019 12:00:00 AM [facility] - 08/14/2020 12:00:00 AM KIRILL FLORES ([facility]) [id number] Evaluation procedure Evaluation Procedure Problem 08/05/2019 12:00:00 AM [facility] - 08/14/2020 12:00:00 AM KIRILL FLORES ([facility]) [id number] Finding of upper limb Finding of Upper Limb Problem 08/05/2019 12:00:00 AM [facility] - 08/14/2020 12:00:00 AM KIRILL FLORES ([facility]) [id number] Diabetes mellitus screening Diabetes Mellitus Screenin g Problem 08/05/2019 12:00:00 AM [facility] - 08/14/2020 12:00:00 AM KIRILL FLORES ([facility]) [id number] Generalized abdominal tenderness Generalized Abd ominal Tenderness Problem 08/05/2019 12:00:00 AM [facility] - 08/14/2020 12:00:00 AM COCO FLORES ([facility]) 93511882 Epigastric pain Epigastric Pain Problem 9 12:00:00 AM EST - 08/14/2020 12:00:00 AM KIRILL FLORES ([facility]) [id number] Rosacea Rosacea Problem 08/05/2019 12:00:00 AM COCO FLORES ([facility]) 378180859 Body mass index 25-29 - overweight Body Mass Ind ex 25-29 - Overweight Problem 08/05/2019 12:00:00 AM KIRILL FLORES ([facility]) [id number] Simple obesity Simple Obesity Problem 08/05/2019 12:00: 00 AM KIRILL FLORES ([facility]) Results ID Date Data Source [id number] 01/15/2020 04:04:46 PM EDT [facility] Measurements & CalculationsHeight: 72 inches (6 ft. [...] to significant stressors related to moving to [facility] for his 's preference. He feels he left a great job for himself, doesn't have great job options or chance for growth here, feels financial strains. Feels isolated socially in this location. At times feels blame towards his for pushing to move to this area from where they were previously in the [facility]. HPI performed by: Yariel ARGUELLO, January 15, 2020 4:37 PMTransitions of Care InboundProblem ReviewProblem List was reviewed and/or updated during this visit.Medication Reconciliation & ReviewMedication List was reviewed and/or updated during this visit, including review of any lghr-ujb-zxpsekb medications, herbal therapies, and/or supplements. Patient has [...] GoodAssessment & Plan Problems:Added: Intermittent palpitations (ICD-785.1) (DCD10-E02.2) Assessment: Instructions: EKG showed normal sinus rhythm. Will order Holter monitor to evaluate further.Tight chest (ICD-786.59) (FKL01-Z51.89) Assessment: Instructions: Consider antihistamine to ensure allergies are being treated strictly. As above regarding EKG. Update labs.Adjustment disorder with anxious mood (ICD-309.24) (SGW15-F08.22) Assessment: Instructions: Consider above anxiety components as well.Assessed:Epigastric pain (ICD-789.06) (EQX31-K71.13) Assessment: Instructions: Call your GI provider for [...] Known Allergies (updated 01/15/2020) Orders:COMP METABOLIC PANEL [CPT-50673] CBC W/DIFF [CPT-28248] TSH [CPT-04838] T-4 free [CPT-78124] Magnesium [[id number],D626136] 48HR Holter Monitor- external medical health researcher [CPT-08337] Mental Health Consult [CPT-23122] Adult - Ofc Vst, EST, Level III [CPT-14725] Follow-Up Return to clinic: as needed Clinical Visit Summary Declined Name Value Range Interpretation Code Description Data Casie rce(s) Supporting Document(s) ID Date Data Source [id number] 12/04/2019 12:00:00 PM EDT [facility] Name Value Range Interpretation Code Description Data Casie rce(s) Supporting Document(s) SARS CORONAVIRUS 2 RNA [facility] This lab was ordered by [facility] and reported by [facility]. ID Date Data Source [id number] 10/07/2019 08:33:53 AM [facility] Measurements & CalculationsHeight: 72 inches 182.88 cm [...] during this visit, including review of any mkod-upx-iziopjx medications, herbal therapies, and/or supplements. Patient has [...] & Plan Problems:Added: Polyp of gallbladder (ICD-575.6) (YTJ10-R65.4) Assessment: Instructions: Will fax ultrasound report to your GI provider, polyp was 0.4mm in size. Continue per your GI specialist.Changed:From: Dx of BMI 31.0-31.9 (ICD-V85.31) (EWL29-T72.31) To: Body Mass Index 29.0-29.9, adult (ICD-V85.25) (CQC79-G16.29)Assessed:Obesity (ICD-278.00) (HRO16-U96.09) Assessment: Instructions: Recommend healthy lifestyle modification. Encourage portion control, healthy food choices, and increasing routine physical activity. Recommendation is for 150 minutes throughout the week of cardiovascular exercise.Body Mass Index 29.0-29.9, adult (ICD-V85.25) (NSA79-X88.29) Assessment: Instructions: Continue your healthy weight loss [...] Orders:Adult - Ofc Vst, EST, Level III [CPT-01858] Follow-Up Return to clinic: Aug 2020, as needed for preventive care visitAdditional Follow-Up: annual PEClinical Visit Summary Completed] Name Value Range Interpretation Code Description Data Casie rce(s) Supporting Document(s) ID Date Data Source [id number] 08/23/2019 08:17:15 AM EST [facility] Measurements & CalculationsHeight: 72 inches (6 ft. [...] or Preferred Language: EnglishFamily and Home Address: [address] [place] [address] What is your housing situation today? I have housing Are you worried about losing your housing? NoMoney and Resources What is the highest level of school that you have finished? some college Employed? Yes Your current work situation? FT [facility] the past year, have you or any family members you live with been unable to get any of the following when it was really needed? Denies Insecurity: food, utilities, clothing, child specialist, phone, legal services, otherIn the past year, [...] 2 nights in a row in a long-term, custodial, half-way center or juvenile correctional facility? No Has [...] during this visit, including review of any fugv-sbg-vuzglba medications, herbal therapies, and/or supplements.Allergy ReviewAllergy List [...] general adult medical examination without abnormal findings (GHF26-H00.00) Assessment: Instructions: Recommend routine annual physicals. Continue with routine dental and vision care.Person consulting for explanation of examination or test findings (ICD-V65.8) (AKE64-T26.2) Assessment: Instructions: Your labs were reviewed in detail today.Hypertriglyceridemia (ICD-272.1) (FAF90-U55.1) Assessment: Instructions: Low fat diet reviewed. Please increase routine physical activity. Recommend monitoring this annually.Assessed:Obesity (ICD- 278.00) (KKT72-K79.09) Assessment: Instructions: Recommend healthy life style modification. Encouurage portion control, healthy food choices, and increasing routine physical activity. Recommendation is for 150 minutes throughout the week of cardiovascular exercise.BMI 31.0-31.9 (ICD-V85.31) (OOS57-K50.31) Assessment: Instructions: Recommend healthy lifestyle modification. Encouurage portion control, healthy food choices, and increasing routine physical activity. Recommendation is for 150 minutes throughout the week of cardiovascular exercise.Epigastric pain (ICD-789.06) (EIT07-Q32.13) Assessment: Instructions: Improved with diet modifications. Abdominal USN ordered, this will be scheduled, you should expect a call from our office in the near future with further details. Please consider taking omeprazole as prescribed for reduction in stomach acid for a trial period.Generalized abdominal tenderness (DXV84-K46.817) Assessment: Instructions: Improved with diet modifications. Abdominal [...] Known Allergies (updated 08/23/2019) Orders:Ultrasound-Abdomen, Complete [CPT- 43597] Preventive, Est, (18-39) [CPT-61484] Follow-Up Return to clinic: in 2 months for follow upAdditional Follow-Up: referral follow-upClinical Visit Summary CompletedVaccines Administered/Entered:Vaccination Group: InfluenzaSeries: 1 NOT GIVENVaccination: Flucelvax Quadrivalent PF (4y+) AdultReason Not Given: Patient decisionEntered Date: 08/23/2019 12:00 AMComments: Pt refusedEntered by: Alona Pereyra LPN Name Value Range Interpretation Code Description Data Casie rce(s) Supporting Document(s) ID Date Data Source [id number] 08/16/2019 09:04:39 AM EST [facility] In-House Blood TestsDate/Time Colle cted: August 16, 2019 9:04 AMTest Result Reference Range Normal ValueComments: blood draw done in offcie done in the left ac tolerated well Jamshid Denny MA, August 16, 2019 9:04 AMAssessment & Plan Orders:61420-Eqy Vst-Est Level I [CPT-77237] 24792 - Venipuncture [CPT-14522] Name Value Range Interpretation Code Description Data Casie rce(s) Supporting Document(s) ID Date Data Source [id number] 08/16/2019 08:30:00 AM [facility] Name Value Range Interpretation Code Description Data Casie rce(s) Supporting Document(s) HCT 47.2 % 42.0-52.0 N [facility] HGB 16.9 g/dL 13.5-17.5 N [facility] MCH 35.8 G/DL pg 32.0-36.5 N [facility] MCHC 31.6 PG % 27.0-33.0 N [facility] PLATELETS 185 10 10*3/mm3 150-450 N [facility] RBC 5.34 10 10*6/mm3 4.30-6.10 N [facility] RDW 12.1 % 11.5-14.5 N [facility] WBC TOTAL 6.6 4.0-10.0 N [facility] ID Date Data Source [id number] 08/16/2019 08:30:00 AM [facility] Name Value Range Interpretation Code Description Data Casie rce(s) Supporting Document(s) HGBA1C 5.4 % [facility] ID Date Data Source [id number] 08/16/2019 08:30:00 AM [facility] Name Value Range Interpretation Code Description Data Casie rce(s) Supporting Document(s) VIT D25 TOT 24.7 ng/mL 30.0-100.0 L [facility] BG FASTING 96 mg/dL 70-100 N [facility] T4, FREE 0.84 ng/dL 0.76-1.46 N [facility] TSH 2.830 microintl units/mL 0.358-3.740 N [facility] ID Date Data Source [id number] 08/05/2019 12:53:21 PM [facility] Measurements & CalculationsHeight: 72 inches (6 ft.) [...] ongoing/intermittent pains. Pt reports previous treatment in [place] office in January 2019, pt reports he [...] during this visit, including review of any gaah-xee-puxkqhs medications, herbal therapies, and/or supplements.Allergy ReviewAllergy List [...] are abnormal.Nodule of skin of left forearm (ODW38-B28.32) Assessment: Instructions: Referral generated to dermatology for possible excision/removal.Rosacea, unspecified (MBV45-A10.9) Assessment: Instructions: Referral for dermatology for further evaluation and management.Screening for diabetes mellitus (ICD-V77.1) (JZE66-W90.1) Assessment: Instructions: Fasting labs have been ordered for you today. When labs are drawn, please ensure that you have had nothing to eat or drink for 8-10 hours prior to the blood drawn. Water or black coffee is OK to have before the blood draw.Screening for lipoid disorders (ICD-V77.91) (RHO38-G58.220) Assessment: Instructions: Fasting labs have been ordered for you today. When labs are drawn, please ensure that you have had nothing to eat or drink for 8-10 hours prior to the blood drawn. Water or black coffee is OK to have before the blood draw.Obesity (ICD-278.00) (GED08-V67.09) Ass essment: Instructions: Recommend healthy lifestyle modification. Encouurage portion control, healthy food choices, and increasing routine physical activity. Recommendation is for 150 minutes throughout the week of cardiovascular exercise.BMI 31.0-31.9 (ICD-V85.31) (SYB61-W26.31) Assessment: Instructions: Recommend healthy lifestyle modification. Encouurage portion control, healthy food choices, and increasing routine physical activity. Recommendation is for 150 minutes throughout the week of cardiovascular exercise.Health Screening (ICD-V70.0) ([id number]) Assessment: Instruction s: Routine labs have been [...] Known Allergies (updated 08/05/2019) Orders:COMP METABOLIC PANEL [CPT-53626] CBC W/DIFF [CPT-88500] HgBA1c [CPT-73696] LIPID PANEL [CPT-30970] TSH [CPT-75810] T-4 free [CPT-33899] Vitamin D 250H Unspecified [CPT-69739] URINALYSIS [CPT-35415] Amylase [CPT-88343] Lipase [CPT- 37714] H Pylori Antibodies (IgG) [CPT-50044] Gastroenterology Consult [CPT- 90560] Dermatology Consult [CPT-65130] Follow-Up Return to clinic: in 1-2 weeks for follow upAdditional Follow-Up: lab reviewClinical Visit Summary CompletedMedications:OMEPRAZOLE 20 MG ORAL CAPSULE DELAYED RELEASE (OMEPRAZOLE) Take 1 tablet by mouth once daily in the morning #60[Capsule] x 0 Route:ORAL Entered and Authorized by: Yariel ARGUELLO Method used: Electronically to [facility]* (retail) [id number] [place] [address] [address] [place] [address] Note to Pharmacy: Route: ORAL; Indications: GENERALIZED ABDOMINAL TENDERNESS;EPIGASTRIC PAIN RxID: [id number] Health Maintenance and Education Smoking Status: Denies ever smoking. (08/05/2019)Drugs and Tobacco Passive Smoke Exposure: NoTobacco Smoking Status: never smokerExercise Activity: none Education: Advised on exercising regularly provided.Health Education Sexual Activity Are you sexually active? Yes Assess ment & Plan Orders:Adult - Ofc Vst, NEW, Level III [CPT-35503] Name Value Range Interpretation Code Description Data Casie rce(s) Supporting Document(s) Procedure Vital Signs ID Date Data Source UNK Name Value Range Interpretation Code Description Data Source(s) Body weight 3740.8 [oz_av] 3740.8 [oz_av] ATHEN A ([facility]) Systolic blood pressure 121 mm[Hg] 121 mm[Hg] A [facility] ([facility]) Body mass index (BMI) [Ratio] 31.7 kg/m2 31.7 k g/m2 MARK ([facility]) Body height 72 [in_i] 72 [in_i] MARK ([facility]) Diastolic blood pressure 79 mm[Hg] 79 mm[Hg] MARK ([facility]) Body weight 3510.08 [oz_av] 3510.08 [oz_av] ATH [place] ([facility]) Systolic blood pressure 106 mm[Hg] 106 mm[Hg] A [facility] ([facility]) Body height 72 [in_i] 72 [in_i] MARK ([facility]) Diastolic blood pressure 74 mm[Hg] 74 mm[Hg] MARK ([facility]) Body weight 3456 [oz_av] 3456 [oz_av] MARK ([facility]) Systolic blood pressure 115 mm[Hg] 115 mm[Hg] A [facility] ([facility]) Body height 72 [in_i] 72 [in_i] MARK ([facility]) Diastolic blood pressure 75 mm[Hg] 75 mm[Hg] MARK ([facility]) Body weight 97.978 kg 97.978 kg KIM ([facility], ) Body mass index (BMI) [Ratio] 29.3 kg/m2 29.3 k g/m2 MEDPRITI ([facility], ) Body weight 216.00 [lb_av] 216.00 [lb_av] EMIJASON T ([facility], ) Body height 72 [in_i] 72 [in_i] KIM ([facility], ) 6'0" Diastolic blood pressure 71 mm[Hg] 71 mm[Hg] KIM ([facility], ) Systolic blood pressure 135 mm[Hg] 135 mm[Hg] Norman MAEPRITI ([facility], ) Body weight 3536 [oz_av] 3536 [oz_av] MARK ([facility]) Systolic blood pressure 127 mm[Hg] 127 mm[Hg] A [facility] ([facility]) Body height 72 [in_i] 72 [in_i] MARK ([facility]) Diastolic blood pressure 89 mm[Hg] 89 mm[Hg] MARK ([facility]) Body weight 3670.08 [oz_av] 3670.08 [oz_av] ATH [place] ([facility]) Systolic blood pressure 138 mm[Hg] 138 mm[Hg] A THENA ([facility]) Body height 72 [in_i] 72 [in_i] MARK ([facility]) Diastolic blood pressure 89 mm[Hg] 89 mm[Hg] MARK ([facility])
[2020-08-23] MEDS ORDERED: ONDANSETRON 4MG/2ML VIAL IV ONE (16:45)
[2020-08-23] MEDS ORDERED: KETOROLAC 30 MG/ML 1ML VIAL IV ONE (16:45)
[2020-08-23] MEDS ORDERED: NS 1,000 ML IV ONE (16:45)
[2020-08-23 17:07] LABS: BASO % 0.3 % (0.0-1.0); EOS # 0.1 10^3/uL (0.0-0.5); HEMATOCRIT 45.8 % (42.0-52.0); HEMOGLOBIN 16.1 g/dl (13.5-17.5); LYMPH # 1.1 10^3/uL (1.5-5.0); LYMPH % 7.9 % (24.0-44.0); MEAN CORPUSCULAR HEMOGLOBIN 31.7 pg (27.0-33.0); MEAN CORPUSCULAR HGB CONC 35.2 g/dl (32.0-36.5); MEAN CORPUSCULAR VOLUME 90.2 fl (80.0-96.0); MONO # 0.6 10^3/uL (0.0-0.8); MONO % 4.2 % (0.0-5.0); NEUTROPHILS # 11.6 10^3/uL (1.5-8.5); NEUTROPHILS % 86.2 % (36.0-66.0); PLATELET COUNT, AUTOMATED 176 10^3/uL (150-450); RED BLOOD COUNT 5.08 10^6/uL (4.30-6.10); WHITE BLOOD COUNT 13.5 10^3/uL (4.0-10.0)
[2020-08-23 17:31] LABS: ALBUMIN 3.9 GM/DL (3.2-5.2); BILIRUBIN,DIRECT 0.1 MG/DL (0.0-0.2); BILIRUBIN,TOTAL 0.4 MG/DL (0.2-1.0); TOTAL PROTEIN 7.3 GM/DL (6.4-8.2)
[2020-08-23] MEDS ORDERED: ISOVUE-370 76% 100ML VIAL As Ordered ONE (18:04)
--- NOTE | 2020-08-23 18:59 | REPVR ---
PROCEDURE INFORMATION: Exam: CT Abdomen And Pelvis With Contrast Exam date and time: 08/23/2020 6:06 PM Age: 39 years old Clinical indication: Abdominal pain; Localized; Left; Additional info: Left sided abdominal pain TECHNIQUE: Imaging protocol: Computed tomography of the abdomen and pelvis with intravenous contrast. Radiation optimization: All CT scans at this facility use at least one of these dose optimization techniques: automated exposure control; mA and/or kV adjustment per patient size (includes targeted exams where dose is matched to clinical indication); or iterative reconstruction. Contrast material: ISOVUE 370; Contrast volume: 100 ml; Contrast route: INTRAVENOUS (IV); COMPARISON: ABD COMPLETE US 09/10/2019 7:18 AM FINDINGS: Lungs: There is mild atelectasis in the right lung base. Heart: The heart is normal in size. Liver: Normal appearing liver. Gallbladder and bile ducts: The gallbladder is partially contracted and no definite evidence of pathology. Normal common bile duct. Pancreas: Normal pancreas. Spleen: Normal spleen. Adrenal glands: Normal adrenal glands. Kidneys and ureters: There is opacification of the kidneys. There is no evidence of hydronephrosis. Stomach and bowel: Normal appearing small bowel. Appendix: The the appendix appears normal in size. Intraperitoneal space: There is no evidence of pneumoperitoneum. There is no evidence of free fluid in the abdomen. No evidence of mesenteric mass. Vasculature: There is opacification of the SMV the and the SMA. There is opacification of the aorta which appears normal in size in the there is no evidence of pneumoperitoneum. Lymph nodes: Unremarkable. No enlarged lymph nodes. Urinary bladder: Normal appearing urinary bladder. Reproductive: Normal size prostate. Bones/joints: Is moderate disc protrusion L4-L5. There is no evidence of bony abnormality. IMPRESSION: Normal appearing CT scan of the abdomen and pelvis COMMENTS: Consistent with the [employer]'s Incidental Findings Committee white paper (J Am Raghu Radiol 2018): Any incidental renal lesion less than 1 cm or classified as too small to characterize, or any incidental cystic renal lesion characterized as simple-appearing, is likely benign. No follow-up imaging is recommended for these lesions per consensus recommendations based on imaging criteria. Electronically signed by: Chacho Bunch On 08/23/2020 18:59:28 PM
[2020-08-23] MEDS ORDERED: DICY10SO PO (19:22)
[2020-08-23 19:34] VITALS: BP 143/88
== END 2020-08-23 19:39 | disposition home or self-care (01) ==
LOC: M ED 15:57
DX: R10.84 Generalized abdominal pain (principal); R11.2 Nausea with vomiting, unspecified; M51.26 Other intervertebral disc displacement, lumbar region
CPT/HCPCS: 74177; 80047; 80076; 81001; 83690; 85025; 96361; 96374; 96375; 99284; J1885; J2405; Q9967

== ENCOUNTER 2021-01-12 17:27 | Emergency (ER) | payer OTHER, BC ==
[~2021-01-12] VITALS: Ht 182.9 cm; Wt 104.5 kg
[~2021-01-12 17:27] MED LIST changes: +DICY10SO PO; -NS 1,000 ML IV ONE
[2021-01-12 17:33] VITALS: BP 121/80
== END 2021-01-12 20:07 | disposition left against medical advice (07) ==
LOC: M ED 17:27
DX: Z53.21 Procedure and treatment not carried out due to patient leaving prior to being seen by health care provider (principal)

== ENCOUNTER → 2021-02-06 | Outpatient (CLI) | payer BC, OTHER ==
[2021-02-06 10:03] LABS: ALBUMIN 3.8 GM/DL (3.2-5.2); ALT/SGPT 21 U/L (12-78); AMYLASE 56 U/L (25-115); BILIRUBIN,TOTAL 0.5 MG/DL (0.2-1.0); BLOOD UREA NITROGEN 14 MG/DL (7-18); CALCIUM LEVEL 9.1 MG/DL (8.5-10.1); CARBON DIOXIDE LEVEL 30 MEQ/L (21-32); CHLORIDE LEVEL 107 MEQ/L (98-107); CREATININE FOR GFR 1.01 MG/DL (0.70-1.30); GLOMERULAR FILTRATION RATE > 60.0 (>60); GLUCOSE, FASTING 98 MG/DL (70-100); LIPASE 165 U/L (73-393); POTASSIUM SERUM 4.5 MEQ/L (3.5-5.1); SODIUM LEVEL 143 MEQ/L (136-145); TOTAL PROTEIN 7.3 GM/DL (6.4-8.2)
== END ==
LOC: M LAB 08:44
PROVIDERS: ATTEND Physician Assistant
DX: R10.13 Epigastric pain (principal)

== ENCOUNTER → 2021-02-15 | Outpatient (REF) | payer OTHER, BC | LOC: M LAB REF 18:36 | PROVIDERS: ATTEND Physician Assistant | DX: R21 Rash and other nonspecific skin eruption (principal) ==

== ENCOUNTER → 2022-12-06 | Outpatient (CLI) | payer OTHER, BC ==
[2022-12-06 16:24] LABS: HEMATOCRIT 47.9 % (42.0-52.0); HEMOGLOBIN 16.6 g/dl (13.5-17.5); MEAN CORPUSCULAR HEMOGLOBIN 31.4 pg (27.0-33.0); MEAN CORPUSCULAR HGB CONC 34.7 g/dl (32.0-36.5); MEAN CORPUSCULAR VOLUME 90.7 fl (80.0-96.0); PLATELET COUNT, AUTOMATED 216 10^3/uL (150-450); RED BLOOD COUNT 5.28 10^6/uL (4.30-6.10); WHITE BLOOD COUNT 8.4 10^3/uL (4.0-10.0)
[2022-12-06 16:56] LABS: ALBUMIN 4.2 G/DL (3.2-5.2); ALKALINE PHOSPHATASE 109 U/L (46-116); ALT/SGPT 27 U/L (7.0-40); AST/SGOT 23 U/L (<34); BILIRUBIN,TOTAL 0.5 MG/DL (0.3-1.2); BLOOD UREA NITROGEN 16 MG/DL (9-23); CALCIUM LEVEL 9.4 MG/DL (8.5-10.1); CARBON DIOXIDE LEVEL 30 MMOL/L (20-31); CHLORIDE LEVEL 105 MMOL/L (98-107); CREATININE FOR GFR 1.03 MG/DL (0.70-1.30); GLOMERULAR FILTRATION RATE > 60.0 (>60); GLUCOSE, FASTING 86 MG/DL (60-100); POTASSIUM SERUM 4.2 MMOL/L (3.5-5.1); SODIUM LEVEL 138 MMOL/L (136-145); TOTAL PROTEIN 7.7 G/DL (5.7-8.2)
== END ==
LOC: M WUC 12:51
PROVIDERS: ATTEND Physician Assistant
DX: R82.998 Other abnormal findings in urine (principal)

== ENCOUNTER → 2023-03-20 | Outpatient (REF) | payer SELFPAY | LOC: M LABSMT 09:23 | PROVIDERS: ATTEND Urology | DX: Z30.2 Encounter for sterilization (principal) ==

== ENCOUNTER → 2023-06-08 | Outpatient (REF) | payer SELFPAY ==
[2023-06-08 15:14] LABS: SEMEN APPEARANCE OPAQUE (OPAQUE); SEMEN VISCOSITY LIQUID (LIQUID); SEMEN VOLUME 1.5 ml (2.0-5.0)
[2023-06-08 15:15] LABS: WBC CONCENTRATION >1 M/ml (<=1 M/ml)
== END ==
LOC: M SMT 13:26
PROVIDERS: ATTEND Urology
DX: Z30.2 Encounter for sterilization (principal)

== ENCOUNTER → 2024-02-15 | Outpatient (CLI) | payer OTHER ==
[2024-02-15 12:16] LABS: APPEARANCE, URINE CLEAR (CLEAR); BACTERIA, URINE AUTO NEGATIVE (NEGATIVE); BILIRUBIN, URINE AUTO NEGATIVE (NEGATIVE); BLOOD, URINE BLOOD NEGATIVE (NEGATIVE); COLOR, URINE STRAW (YELLOW); GLUCOSE, URINE (UA) AUTO NEGATIVE (NEGATIVE); KETONE, URINE AUTO NEGATIVE (NEGATIVE); LEUKOCYTE ESTERASE, URINE AUTO NEGATIVE (NEGATIVE); MUCUS, URINE SMALL (NEGATIVE); NITRITE, URINE AUTO NEGATIVE (NEGATIVE); PROTEIN, URINE AUTO NEGATIVE (NEGATIVE); RBC, URINE AUTO 0 /HPF (0-3); SPECIFIC GRAVITY URINE AUTO 1.005 (1.002-1.035); SQUAMOUS EPITHELIAL CELL UR AU 0 /HPF (0-6); UROBILINOGEN, URINE AUTO 0.2 mg/dL (0.0-2.0); WBC, URINE AUTO 0 /HPF (0-3)
[2024-02-15 12:18] LABS: HEMATOCRIT 43.9 % (42.0-52.0); HEMOGLOBIN 15.2 g/dl (13.5-17.5); MEAN CORPUSCULAR HEMOGLOBIN 31.5 pg (27.0-33.0); MEAN CORPUSCULAR HGB CONC 34.6 g/dl (32.0-36.5); MEAN CORPUSCULAR VOLUME 90.9 fl (80.0-96.0); PLATELET COUNT, AUTOMATED 138 10^3/uL (150-450); RED BLOOD COUNT 4.83 10^6/uL (4.30-6.10); WHITE BLOOD COUNT 4.5 10^3/uL (4.0-10.0)
[2024-02-15 12:48] LABS: ALBUMIN 3.9 G/DL (3.2-5.2); ALKALINE PHOSPHATASE 92 U/L (46-116); ALT/SGPT 34 U/L (7.0-40); AMYLASE 72 U/L (30-118); AST/SGOT 19 U/L (<34); BILIRUBIN,TOTAL 0.8 MG/DL (0.3-1.2); BLOOD UREA NITROGEN 19 MG/DL (9-23); CALCIUM LEVEL 9.4 MG/DL (8.5-10.1); CARBON DIOXIDE LEVEL 29 MMOL/L (20-31); CHLORIDE LEVEL 105 MMOL/L (98-107); CREATININE FOR GFR 0.99 MG/DL (0.70-1.30); GLOMERULAR FILTRATION RATE > 60.0 (>60); GLUCOSE, FASTING 90 MG/DL (60-100); LIPASE 50 U/L (12-53); POTASSIUM SERUM 4.1 MMOL/L (3.5-5.1); PSA SCREENING 0.65 NG/ML (< 4.00); SODIUM LEVEL 142 MMOL/L (136-145); TOTAL PROTEIN 7.2 G/DL (5.7-8.2)
[2024-02-15 13:40] LABS: GC DNA AMPLIFICATION NEGATIVE (NEGATIVE)
== END ==
LOC: M WUC 10:02
PROVIDERS: ATTEND Physician Assistant
DX: N53.12 Painful ejaculation (principal)
CPT/HCPCS: 36415; 80053; 81001; 82150; 83690; 85027; 87810; 87850; G0103

== ENCOUNTER → 2024-03-07 | Outpatient (CLI) | payer OTHER ==
[2024-03-07 13:36] LABS: BASO % 0.4 % (0.0-1.0); EOS # 0.2 10^3/uL (0.0-0.5); HEMATOCRIT 41.1 % (42.0-52.0); HEMOGLOBIN 14.5 g/dl (13.5-17.5); LYMPH # 1.9 10^3/uL (1.5-5.0); LYMPH % 35.7 % (24.0-44.0); MEAN CORPUSCULAR HEMOGLOBIN 31.8 pg (27.0-33.0); MEAN CORPUSCULAR HGB CONC 35.3 g/dl (32.0-36.5); MEAN CORPUSCULAR VOLUME 90.1 fl (80.0-96.0); MONO # 0.4 10^3/uL (0.0-0.8); NEUTROPHILS # 2.9 10^3/uL (1.5-8.5); NEUTROPHILS % 53.7 % (36.0-66.0); PLATELET COUNT, AUTOMATED 182 10^3/uL (150-450); RED BLOOD COUNT 4.56 10^6/uL (4.30-6.10); WHITE BLOOD COUNT 5.4 10^3/uL (4.0-10.0)
== END ==
LOC: M WUC 10:48
PROVIDERS: ATTEND Physician Assistant
DX: D69.6 Thrombocytopenia, unspecified (principal)

== ENCOUNTER → 2024-04-19 | Outpatient (CLI) | payer OTHER | LOC: M RAD 14:36 | PROVIDERS: ATTEND Urology | DX: N50.82 Scrotal pain (principal); N50.3 Cyst of epididymis; N43.3 Hydrocele, unspecified ==

== ENCOUNTER 2024-12-12 07:29 | Day surgery (SDC) | payer OTHER ==
[~2024-12-12] VITALS: Ht 182.9 cm; Wt 97.1 kg
[~2024-12-12 07:29] MED LIST changes: +GLYCOPYRROLATE INJ 0.2 MG/ML 2 ML VIAL As Ordered ONE; +LIDOCAINE 2% 100MG/5ML SDV (FOR ANES.) As Ordered ONE; +propofoL 200 MG/20 ML VIAL As Ordered ONE
[2024-12-12 09:33] VITALS: TEMP 97.8
[2024-12-12 09:52] VITALS: BP 117/64; O2SAT 97
== END 2024-12-12 10:04 | disposition home or self-care (01) ==
LOC: M OPP 07:29
PROVIDERS: ATTEND Internal Medicine Gastroenterology
DX: Z12.11 Encounter for screening for malignant neoplasm of colon (principal); Z86.0100 Personal history of colon polyps, unspecified; K63.5 Polyp of colon; E78.00 Pure hypercholesterolemia, unspecified; F41.9 Anxiety disorder, unspecified; L71.9 Rosacea, unspecified
CPT/HCPCS: 45385; 88305; J1596

== ENCOUNTER → 2025-03-31 | Outpatient (CLI) | payer OTHER ==
[~2025-03-31] MED LIST changes: -GLYCOPYRROLATE INJ 0.2 MG/ML 2 ML VIAL As Ordered ONE; +ISOVUE-370 76% 100 ML VIAL ONE; -LIDOCAINE 2% 100MG/5ML SDV (FOR ANES.) As Ordered ONE; -propofoL 200 MG/20 ML VIAL As Ordered ONE
== END ==
LOC: M PLAIMG 11:44
PROVIDERS: ATTEND Student in an Organized Health Care Education/Training Program
DX: R10.30 Lower abdominal pain, unspecified (principal)
CPT/HCPCS: 74177; Q9967